=== PATIENT | female | born 1940 | race Caucasian/White ===

== ENCOUNTER 2022-12-04 15:59 | Outpatient (CLI) | payer MEDICARE, SELFPAY ==
[2022-12-04 16:26] LABS: Absolute Neutrophil Count 5.1 X10^3/uL (2.0-7.7); Basophil# 0.07 X10^3/uL; Basophil% 0.8 % (0-1); Eosinophil# 0.14 X10^3/uL; Eosinophils% 1.6 % (0-5); Hematocrit 46.6 % (37-47); Hemoglobin 15.5 g/dL (12.0-15.0); Mean Corp Hgb Conc 33.3 g/dL (32-36); Mean Corpuscular Hgb 31.3 pg (27.0-32.0); Mean Corpuscular Volume 94.1 fL (81-99); Mean Platelet Vol. 10.2 fl (6.2-12.0); Monocyte% 9.3 % (0-10); NRBC Flagged by Analyzer 0 % (0-5); Neutrophil # 5.11 X10^3/uL (2.7-7.7); Neutrophil % 59.2 % (47-70); Platelet Count 225 K/mm3 (150-450); RBC Distribution Width CV 14.5 % (11.6-14.6); RBC Distribution Width SD 50.2 fl (35.1-43.9); Red Blood Count 4.95 M/mm3 (4.2-5.4); White Blood Count 8.6 K/mm3 (4.4-11.0)
[2022-12-04 16:54] LABS: Erythrocyte Sedimentation Rate 14 mm/hr (0-30)
[2022-12-04 17:14] LABS: ALB/GLOB Ratio 0.9 RATIO (0.9-2.4); AST(SGOT) 25 U/L (15-37); Alanine Aminotransfer ALT/SGPT 31 U/L (13-56); Albumin, Serum 3.7 g/dL (3.2-5.0); Alkaline Phosphatase 62 U/L (45-117); Anion Gap 4 (5-15); BUN 15 mg/dL (7-18); BUN/Creat Ratio 16.6 RATIO (10-20); CRP 3.41 mg/L (0.0-3.0); Calcium,Total 9.2 mg/dL (8.5-10.1); Chloride 106 mmol/L (98-107); EST Glomerular Filtration Rate 64 mL/min (>60); Est Glom Filt Rate - Afr Amer 77 mL/min (>60); Globulin 4.3 g/dL (2.2-4.2); Glucose 95 mg/dL (74-106); LDH 211 U/L (84-246); Potassium 4.1 mmol/L (3.5-5.1); Sodium Level 137 mmol/L (136-145)
[2022-12-09 05:33] LABS: Albumin 3.8 g/dL (2.9-4.4); Alpha-1-Globulins 0.2 g/dL (0.0-0.4); Alpha-2-Globulins 0.9 g/dL (0.4-1.0); Cytoplasmic Ab (C-ANCA) <1:20 titer (Neg:<1:20); Endomysial Antibody IgA Negative (Negative); Gamma Globulin 1.3 g/dL (0.4-1.8); Immunoglobulin A 192 mg/dL (64-422); Immunoglobulin E 79 IU/mL (6-495); Immunoglobulin G 1236 mg/dL (586-1602); Immunoglobulin M 104 mg/dL (26-217); PROEL- TOTAL PROTEIN 7.3 g/dL (6.0-8.5); Perinuclear Ab (P-ANCA) <1:20 titer (Neg:<1:20); t-Transglutaminase IgA <2 U/mL (0-3)
[2022-12-09 16:19] LABS: Alternaria alternata <0.10 kU/L (Class 0); Anti-Centromere B Ab <0.2 AI (0.0-0.9); Anti-Chromatin <0.2 AI (0.0-0.9); Anti-Jo <0.2 AI (0.0-0.9); Anti-Scleroderma-70 AB <0.2 AI (0.0-0.9); Anti-dsDNA Ab 4 IU/mL (0-9); Aspergillus fumigatus <0.10 kU/L (Class 0); Beef <0.10 kU/L (Class 0); Bermuda Grass <0.10 kU/L (Class 0); Bluegrass, Kentucky <0.10 kU/L (Class 0); Cat Hair/Dander, Standard <0.10 kU/L (Class 0); Cedar, Mountain 0.13 kU/L (Class 0/I); Chocolate <0.10 kU/L (Class 0); Cladosporium herbarum <0.10 kU/L (Class 0); Clam 0.13 kU/L (Class 0/I); Cockroach, American <0.10 kU/L (Class 0); Codfish <0.10 kU/L (Class 0); Corn <0.10 kU/L (Class 0); D farinae Mite 0.13 kU/L (Class 0/I); D pteronyssinus 0.14 kU/L (Class 0/I); Dog Epithelia 0.14 kU/L (Class 0/I); Egg, White 0.12 kU/L (Class 0/I); Elm, American White <0.10 kU/L (Class 0); Hazelnut Tree <0.10 kU/L (Class 0); Hickory, White <0.10 kU/L (Class 0); Johnson Grass <0.10 kU/L (Class 0); Maple/Box Elder <0.10 kU/L (Class 0); Milk (Cow) 0.12 kU/L (Class 0/I); Mucor racemosus <0.10 kU/L (Class 0); Mugwort <0.10 kU/L (Class 0); Mulberry, White <0.10 kU/L (Class 0); Oak, White <0.10 kU/L (Class 0); Peanut <0.10 kU/L (Class 0); Penicillium chrysogen <0.10 kU/L (Class 0); Pigweed, Rough <0.10 kU/L (Class 0); Plantain, English <0.10 kU/L (Class 0); Pork <0.10 kU/L (Class 0); RNP Ab 0.4 AI (0.0-0.9); Ragweed, Short/Common <0.10 kU/L (Class 0); SCALLOP 0.21 kU/L (Class 0/I); SESAME SEED 0.14 kU/L (Class 0/I); SJOGREN'S Anti-SS-A test < 0.2 AI (0.0-0.9); SJOGREN'S Anti-SS-B test < 0.2 AI (0.0-0.9); Sheep Sorrel(Dock) <0.10 kU/L (Class 0); Shrimp <0.10 kU/L (Class 0); Smith Ab <0.2 AI (0.0-0.9); Soybean <0.10 kU/L (Class 0); Stemphylium herbarum 0.11 kU/L (Class 0/I); Sweet Gum 0.11 kU/L (Class 0/I); Sycamore, American 0.12 kU/L (Class 0/I); Walnut, (Food) <0.10 kU/L (Class 0)
== END 2022-12-04 23:59 | disposition home or self-care (01) ==
LOC: LAB 16:04
PROVIDERS: Referring Provider Internal Medicine Gastroenterology; Visit Provider Internal Medicine Gastroenterology
DX: T78.40XA Allergy, unspecified, initial encounter (principal)
CPT/HCPCS: 36415; 80053; 82784; 82785; 83516; 83615; 84165; 85025; 85652; 86003; 86005; 86140; 86225; 86235; 86255; 86256; 86334

== ENCOUNTER 2023-01-01 08:35 | Day surgery (SDC) | payer MEDICARE, SELFPAY ==
[2023-01-01] VITALS (9 sets, daily range): BP systolic 105–142; BP diastolic 57–78; PULSE 61–72; RESP 15–17; TEMP 36.2–36.4; O2SAT 96–100; BMI 32.3
--- NOTE | 2023-01-01 | COLBX_PTH ---
PATIENT: VAIBHAV TSANG LOC: EN U#:[id number] AGE/SX: 82/F ROOM: RE01/01/[address]: Dr. Chidi Wu DO : 1940 BED: DIS: 01/01/2023 SPEC #: [id number] RECD: 01/01/23 14:09 STATUS: MACK REChastity #: [id number] SHAYAN: 01/01/23 00:[address]: Chidi Wu DEPT: SURGICAL PATHOLOGY RECD BY: Gilberto Mcmahan ENTERED: 01/02/23 07:58 SP TYPE: COLON BX OTHR DR: Юлия Doss, CERTIFIED OPHTHALMIC SURGICAL ASSISTANT-C Tissues: A - COLON BIOPSY B - Cecum, NOS C - COLON BIOPSY D - Sigmoid colon biopsy Procedures: Surgery Specimen Level IV HEADER OPERATION: Colonoscopy with biopsies, polypectomy PRE-OP DIAGNOSIS: Constipation TISSUE SUBMITTED: A - Splenic flexure biopsy, B - Cecum mass biopsy, C - Hepatic flexure polyp biopsy/polyp, D - Sigmoid polyp biopsy MICROSCOPIC DIAGNOSIS A. Colon at splenic flexure, biopsy: Tubular adenoma. B. Cecal mass, biopsy: Invasive adenocarcinoma. See comment. C. Colonic polyp at hepatic flexure, biopsy: Fragments of tubular adenoma. D. Sigmoid colon polyp, biopsy: Tubular adenoma. AM:no 01/05/2023 COMMENT B. Immunohistochemistry ([id number]) supports the above diagnosis. MICROSCOPIC DESCRIPTION Slides are reviewed. GROSS DESCRIPTION A - Received in fixative is one container labeled with the patient's name and designated splenic flexure polyp. The specimen consists of one irregular fragment of light hdz soft tissue that measures 0.3 x 0.2 x 0.1 cm. The specimen is totally submitted in one cassette. B - Received in fixative is one container labeled with the patient's name and designated cecum mass biopsy. The specimen consists of multiple irregular fragments of light hdz soft tissue that in aggregate measure 2.0 x 1.0 x 0.1 cm. The specimen is totally submitted in one cassette. C - Received in fixative is one container labeled with the patient's name and designated hepatic flexure polyp. The specimen consists of multiple irregular fragments of light hdz soft tissue that in aggregate measure 0.5 x 0.5 x 0.1 cm. The specimen is totally submitted in one cassette. D - Received in fixative is one container labeled with the patient's name and designated sigmoid polyp. The specimen consists of one irregular fragment of light hdz soft tissue that measures 0.5 x 0.3 x 0.1 cm. The specimen is totally submitted in one cassette. / AM:no 01/02/2023 TC:0 CPT: 49598 x4
--- NOTE | 2023-01-01 | IMM_PTH ---
PATIENT: VAIBHAV TSANG LOC: EN U#:[id number] AGE/SX: 82/F ROOM: RE01/01/[address]: Dr. Chidi Wu DO : 1940 BED: DIS: 01/01/2023 SPEC #: [id number] RECD: 01/05/23 12:31 STATUS: MACK REQ #: [id number] SHAYAN: 01/01/23 00:[address]: Chidi Wu DEPT: IMMUNOHISTOCHEMISTRY RECD BY: Dyan Smalls ENTERED: 01/05/23 12:32 SP TYPE: IMMUNO OTHR DR: Юлия Doss, TECHNICAL DOCUMENTATION SPECIALIST-C Tissues: B - Cecum, NOS Procedures: MSH2 (add) MLH-1 (add) MSH6 (add) Anti-PMS2 (add) HER2 SHOSHANA (add) P53 (add) CDX2 (add) MOC-31 (add) KI-67 (initial) PHYSICIAN & INSTITUTION [address] [address] SPECIMEN INFORMATION: Tissue Source: B - Cecum mass Clinical Info: Dwain Specimen Number: [id number] CPT code: 69166, 95757 x8 METHODOLOGY: Deparaffinized sections of prefer/formalin-fixed tissue or PAP/DQ stained slides are incubated with monoclonal/polyclonal antibodies/oligonucleotide probes. Localization is made via biotin free immunoperoxidase method. Appropriate controls are performed and reacted as expected. Results on target cell population are indicated in the following table: RESULTS: ANTIBODY / CLONE RESULT Block B Her-2neu (CB11) negative MOC-31 (4561) positive MLH-1 (M1) positive MSH2 (25D12) positive MSH6 (44) positive PMS2 (LOO1451) positive Ki-67 (30-9) positive, >95% P53 (DO-7) positive, missense mutation type CDX2 ([id number]) positive These tests were developed and their performance characteristics determined by [facility]. They may not have been cleared or approved by the U.S. Food and Drug Administration. The FDA has determined that such clearance or approval is not necessary. The above immunohistochemical/dualISH markers are ordered and reviewed by the Pathologist. INTERPRETATION: B. Cecum mass, biopsy: Invasive adenocarcinoma. Result of Microsatellite Instability Study: Negative (no loss of mismatch protein; no microsatellite instability detected). AM:no 01/06/2023
--- NOTE | 2023-01-01 09:52 | HP.PCM_ITS ---
History and Physical Date of Admission: 01/01/23 82 F who presents to the office today for initial consult. Referred by PCP for chronic constipation. Has had constipation life long. Can have 1-2 small BM a day with use of natural laxatives. Has bloating and abdominal discomfort. Reports being sensitive to many foods with fruit being the worst. Will see blood in stool if she eats fruit. Is hard for her to determine food triggers. Has HB from time to time. Has never had a colonoscopy. No other complaints or pertinent PMH. ROS Const Constitutional: No anorexia, fatigue, fever(s), weight change or sleep problems Eyes Eyes: No change in vision ENT ENT: No abnormal hearing, difficulty swallowing, mouth lesions, tongue swelling or throat swelling Resp Respiratory: No cough or shortness of breath Cardio Cardiology: No chest pain at rest, chest pain with exertion, shortness of breath or dyspnea on exertion Gastro GI: No difficulty swallowing Genitourinary-Female: No difficulty urinating or burning urination Musc Musculoskeletal: No joint pain, joint swelling, muscle weakness or decreased muscle mass Skin Skin: No hair loss in leg, yellowing of the eye, itchy eyes, rash, skin ulcer or skin swelling Neuro Neurology: No abnormal hearing, abnormal movements, confusion, unsteady gait/balance or memory loss Psych Psychiatric: No anxiety, No confusion and No memory loss Endo Endocrine: No fatigue or weight change Aller/Imm Allergy/Immunologic: No itchy eyes, throat swelling or tongue swelling Bra[place]/Lymp Hematologic/Lymphatic: No easy bleeding, easy bruising or enlarged lymph nodes Exam Const General: cooperative and comfortable Nutritional Appearance: average body habitus and well nourished [facility] Head: normal to inspection Ears: hearing grossly normal bilaterally Nose: external nose normal Face and sinus: normal facial exam Mouth: oral mucosae normal Throat: posterior oropharynx normal Eyes General: appearance normal, both eyes and all related structures Neck Neck: normal visual inspection Chest Chest palpation & inspection: normal inspection of the chest and normal palpation of entire chest wall Resp Effort & Inspection: normal respiratory effort Auscultation: Bilateral: Clear to Auscultation Cardio Palpation: normal PMI Rate: regular rate Rhythm: regular rhythm GI Inspection: normal to inspection Auscultation: normal bowel sounds Percussion: normal to percussion Palpation: no hepatosplenomegaly Skin General: no rashes or lesions noted Neuro General: patient alert Extrem General: normal to inspection Psych Affect: normal affect Assessment and Plan Assessment and Plan (1) Allergic: Status: Acute Qualifiers: Encounter type: initial encounter Qualified Code(s): T78.40XA - Allergy, unspecified, initial encounter (2) Constipation: Status: Acute Qualifiers: Constipation type: slow transit constipation Qualified Code(s): K59.01 - Slow transit constipation Plan: 82-year-old with chronic idiopathic constipation. Significant for dysfunction, slow transit constipation. She takes laxatives and has been using laxatives in order to go to the bathroom for at least 30 years. She also has multiple drug allergies so she does not want to take anything else without knowing the side effect profile. She will undergo colonoscopy because she has never had a colonoscopy to evaluate her lower GI tract anatomy. We will also get food allergy and allergy testing. She was explained alternatives, risk, benefits including understanding bleeding, infection, sepsis, perforation, need emergent surgery. She will have an ASA 2. Orders: Orders Allergen, Food Profile Today T78.40XA - Allergy, unspecified, initial encounter Allergen, Rast Food Profile Today T78.40XA - Allergy, unspecified, initial encounter Allergens, Zone 8 Today T78.40XA - Allergy, unspecified, initial encounter ANCA Today T78.40XA - Allergy, unspecified, initial encounter Celiac Disease Profile Today T78.40XA - Allergy, unspecified, initial encounter Immunoglobulins G/A/M/E Today T78.40XA - Allergy, unspecified, initial encounter CRP Today T78.40XA - Allergy, unspecified, initial encounter Erythrocyte Sed Rate Today T78.40XA - Allergy, unspecified, initial encounter CBC W/Diff, Automated Today T78.40XA - Allergy, unspecified, initial encounter Comprehensive Metabolic Profil Today T78.40XA - Allergy, unspecified, initial encounter ERROL Comprehensive Panel Today T78.40XA - Allergy, unspecified, initial encounter SANDIP + Protein Elect, Serum Today T78.40XA - Allergy, unspecified, initial encounter LDH Today T78.40XA - Allergy, unspecified, initial encounter I have examined the patient and the H&P has been reviewed. There are no clinical changes since date of exam.
--- NOTE | 2023-01-01 11:33 | OP.CCLET_ITS ---
01/01/2023 No Primary Care Physician Re : Colonoscopy procedure for Dawna Melgar Dear Care Physician This procedure was performed on December. My impressions and recommendations are as follows: Impressions : - One 5 mm polyp in the sigmoid colon, removed with a hot snare. Resected and retrieved. Tattooed. - Moderately active (Rainey Score 2) ulcerative colitis. Biopsied. - Mild inflammation was found in the ileum secondary to ileitis. Biopsied. Recommendations : - Discharge patient to home. - Resume previous diet. - Continue present medications. - Await pathology results. - Repeat colonoscopy for surveillance. -CT scan of the chest, abdomen and pelvis - CEA My findings are described in the full procedure note, which is enclosed. If I can be of further assistance, please feel free to contact me at . Sincerely, Chidi Wu, 01/01/2023 11:33:25 AM This report has been signed electronically.
--- NOTE | 2023-01-01 11:33 | OP.COLON_ITS ---
Patient Name: Dawna Melgar Procedure Date: 01/01/2023 10:41 AM Date of : 1940 Age: 82 Procedure: Colonoscopy Indications: Left-sided chronic ulcerative colitis, Pseudopolyposis of the colon Providers: Chidi Wu DO Referring MD: Chidi Wu DO Medicines: Monitored Anesthesia Care Patient Profile: This is an 82 year old female. Refer to note in patient chart for documentation of history and physical. Last Colonoscopy: date unknown. Unable to locate last colonoscopy report. Complications: No immediate complications. Procedure: Pre-Anesthesia Assessment: - Prior to the procedure, a History and Physical was performed, and patient medications and allergies were reviewed. The patient is competent. The risks and benefits of the procedure and the sedation options and risks were discussed with the patient. All questions were answered and informed consent was obtained. Patient identification and proposed procedure were verified by the physician in the pre-procedure area. Mental Status Examination: alert and oriented. Respiratory Examination: clear to auscultation. CV Examination: normal. Prophylactic Antibiotics: The patient does not require prophylactic antibiotics. Prior Anticoagulants: The patient has taken no anticoagulant or antiplatelet agents. ASA Grade Assessment: II - A patient with mild systemic disease. After reviewing the risks and benefits, the patient was deemed in satisfactory condition to undergo the procedure. The anesthesia plan was to use monitored anesthesia care (MAC). Immediately prior to administration of medications, the patient was re-assessed for adequacy to receive sedatives. The heart rate, respiratory rate, oxygen saturations, blood pressure, adequacy of pulmonary ventilation, and response to care were monitored throughout the procedure. The physical status of the patient was re-assessed after the procedure. After I obtained informed consent, the scope was passed under direct vision. Throughout the procedure, the patient's blood pressure, pulse, and oxygen saturations were monitored continuously. The Colonoscope was introduced through the anus and advanced to the terminal ileum. The colonoscopy was performed without difficulty. The patient tolerated the procedure well. The quality of the bowel preparation was good. The terminal ileum, ileocecal valve, appendiceal orifice, and rectum were photographed. Scope In: 11:02:15 AM Scope Withdrawal Time 0 hours 13 minutes 8 seconds Scope Out: 11:21:07 AM Total Procedure Duration Time 0 hours 18 minutes 52 seconds Findings: The perianal and digital rectal examinations were normal. Three sessile polyps were found in the sigmoid colon, transverse colon and cecum. The polyps were 1 to 2 mm in size. These polyps were removed with a hot snare. Resection and retrieval were complete. Verification of patient identification for the specimen was done. Estimated blood loss was minimal. A diffuse area of severe melanosis was found in the entire colon. Biopsies were taken with a cold forceps for histology. Verification of patient identification for the specimen was done. Estimated blood loss was minimal. A few small-mouthed diverticula were found in the recto-sigmoid colon and sigmoid colon. An ulcerated non-obstructing large mass was found in the cecum. The mass was non-circumferential. The mass measured three cm in length. In addition, its diameter measured five mm. No bleeding was present. This was biopsied with a cold forceps for histology. Area was tattooed with an injection of 2 mL of Shania ink. Impression: - One 5 mm polyp in the sigmoid colon, removed with a hot snare. Resected and retrieved. Tattooed. - Moderately active (Rainey Score 2) ulcerative colitis. Biopsied. - Mild inflammation was found in the ileum secondary to ileitis. Biopsied. Recommendation: - Discharge patient to home. - Resume previous diet. - Continue present medications. - Await pathology results. - Repeat colonoscopy for surveillance. -CT scan of the chest, abdomen and pelvis - CEA Procedure Code(s): --- Professional --- 06758, Colonoscopy, flexible; with removal of tumor(s), polyp(s), or other lesion(s) by snare technique 60016, 59, Colonoscopy, flexible; with biopsy, single or multiple 79428, Colonoscopy, flexible; with directed submucosal injection(s), any substance CPT copyright 2021 [employer]. All rights reserved. The codes documented in this report are preliminary and upon ironer hand review may be revised to meet current compliance requirements. Chidi Wu DO 01/01/2023 11:33:25 AM This report has been signed electronically. Number of Addenda: 0 Note Initiated On: 01/01/2023 10:41 AM
--- NOTE | 2023-01-01 13:33 | SUR.PHASEII ---
AT APPROXIMATLY 1300, DR WISEMAN SPOKE WITH PATIENT AND FAMILY FOR APPROX 15-20 MINUTES REGARDING COLOSCOPY FINDINGS. MADDIE BARRON, MICHAEL AGUIAR, ALSO SPOKE WITH PATIENT AND FAMILY
== END 2023-01-01 13:15 | disposition home or self-care (01) ==
LOC: EN 08:39 → AC 08:40
PROVIDERS: PCP Nurse Practitioner Family; Referring Provider Nurse Practitioner Family; Visit Provider Internal Medicine Gastroenterology
PROC: 0DJD8ZZ Inspection of Lower Intestinal Tract, Via Natural or Artificial Opening Endoscopic (ICD-10-PCS; CPT 45378; principal; 2023-01-01 09:55)
DX: K51.90 Ulcerative colitis, unspecified, without complications (principal); C18.0 Malignant neoplasm of cecum; K59.01 Slow transit constipation; T78.40XA Allergy, unspecified, initial encounter
CPT/HCPCS: 45385; 45381; 45380; 81002; 88305; 88341; 88342; J7120; A4648; J2405

== ENCOUNTER → 2023-01-28 | Outpatient (CLI) | payer MEDICARE, SELFPAY ==
--- NOTE | 2023-01-28 13:04 | CT_ITS ---
STUDY: CT CHEST, ABDOMEN T PELVIS WITH CONTRAST REASON FOR EXAM: Female, 82 years old. History of colon cancer. RADIATION DOSAGE (If Supplied By Facility): CTDIvol = ( 20.96 ) mGy, DLP = ( 1053.83 ) mGycm TECHNIQUE: Transaxial imaging was performed following intravenous administration of Oral and amp; IV Gastrografin and amp; 100mL Isovue-300. Multiplanar coronal and sagittal images were reformatted. Individualized dose optimization techniques were used for this CT. COMPARISON: No relevant priors. FINDINGS: CHEST Small benign appearing bilateral axillary lymph nodes. Minimal linear scarring at the lung bases. There is no demonstrated pleural abnormality. There are calcifications of the coronary arteries. Normal mediastinum. Normal hilar regions. Normal unenhanced pulmonary arteries. Normal aorta arch and descending thoracic aorta. There are multi-level degenerative changes of the thoracic spine. ABDOMEN Normal liver. Possible tiny gallstones along the dependent portion of the gallbladder lumen. There is a benign calcified granuloma of the spleen. Normal pancreas. Normal bilateral adrenal glands. Normal right kidney. Normal left kidney. Normal visualized stomach. Normal small intestine. Soft tissue mass is seen in the cecum in the region of the ileocecal valve. This has an apple core appearance and most likely represents a neoplastic process seen on colonoscopy. There are surgical clips in the region of the appendix consistent with a prior appendectomy. There is diffuse atherosclerotic calcification of the abdominal aorta, without a demonstrated aneurysm. Normal inferior vena cava. Normal retroperitoneum. There is a small umbilical hernia containing fat. Normal osseous structures. PELVIS Normal urinary bladder. Status post hysterectomy. There is evidence of a cystocele. There is no pelvic fluid. There is no pelvic lymphadenopathy or mass lesion. Normal visualized pelvic arteries. CT/CT Chest, Abd, Pel w/Contrast IMPRESSION: Mass lesion in the region of the ileocecal valve as described. Findings suggest tiny gallstones along the dependent portion of the gallbladder lumen. Electronically Signed: Rashel Younger MD at 15:36 EDT ,
[2023-01-28 15:20] LABS: CREATININE FINGERSTICK < 0.9 mg/dL (0.55-1.02); EGFR FINGERSTICK > 60.0000 mL/min (>60)
== END | disposition home or self-care (01) ==
LOC: CT 13:02
PROVIDERS: PCP Nurse Practitioner Family; Referring Provider Internal Medicine Gastroenterology; Visit Provider Internal Medicine Gastroenterology
DX: C18.9 Malignant neoplasm of colon, unspecified (principal)
CPT/HCPCS: 71260; 74177; Q9967

== ENCOUNTER 2023-02-24 05:12 | Inpatient (IN) | payer MEDICARE, SELFPAY ==
--- NOTE | 2023-02-18 07:44 | EKG12_ITS ---
Test Reason : PRE-OP Blood Pressure : / mmHG Vent. Rate : 067 BPM Atrial Rate : 067 BPM P-R Int : 170 ms QRS Dur : 092 ms QT Int : 426 ms P-R-T Axes : 072 -56 044 degrees QTc Int : 450 ms Sinus rhythm with Premature supraventricular complexes Left axis deviation Abnormal ECG Confirmed by RASHAWN MCPHERSON, SADA ([id number]), manager editorial ISIDRO FLETCHER ([id number]) on 02/20/2023 2:40:24 PM Referred By: GISSEL Confirmed By:SADA MOROCHO MD
[2023-02-18 09:53] LABS: Magnesium 2.4 mg/dL (1.6-2.6)
[2023-02-19 04:07] LABS: Carcinoembryonic Antigen 2.9 ng/mL (0.0-4.7)
[2023-02-24] VITALS (12 sets, daily range): BP systolic 91–167; BP diastolic 59–87; PULSE 71–81; RESP 14–18; TEMP 36.2–37; O2SAT 96–100; BMI 32.2; BMI 33.0
--- NOTE | 2023-02-24 | IMM_PTH ---
PATIENT: VAIBHAV TSANG LOC: MS3 U#:[id number] AGE/SX: 82/F ROOM: [facility] [place] RE02/24/[address]: Dr. Tima Champion MD : 1940 BED: 1 DIS: 03/07/2023 SPEC #: [id number] RECD: 02/26/23 14:24 STATUS: MACK REChastity #: [id number] SHAYAN: 02/24/23 00:[address]: Tima Champion DEPT: IMMUNOHISTOCHEMISTRY RECD BY: Dyan Smalls ENTERED: 02/26/23 14:26 SP TYPE: IMMUNO OTHR DR: Юлия Doss, YARDAGE ESTIMATOR-C Tissues: Right colon Procedures: MSH2 (add) MLH-1 (add) MSH6 (add) Anti-PMS2 (add) HER2 SHOSHANA (add) P53 (add) MOC-31 (add) KI-67 (initial) PHYSICIAN & INSTITUTION [address] [address] SPECIMEN INFORMATION: Tissue Source: Right colon with terminal ileum Clinical Info: Malignant neoplasm of ascending colon Specimen Number: [id number] #5 CPT code: 16658, 88469 x7 METHODOLOGY: Deparaffinized sections of prefer/formalin-fixed tissue or PAP/DQ stained slides are incubated with monoclonal/polyclonal antibodies/oligonucleotide probes. Localization is made via biotin free immunoperoxidase method. Appropriate controls are performed and reacted as expected. Results on target cell population are indicated in the following table: RESULTS: ANTIBODY / CLONE RESULT Block 5 Her-2neu (CB11) negative MOC-31 (4561) positive MLH-1 (M1) positive MSH2 (25D12) positive MSH6 (44) positive PMS2 (VRC4555) positive Ki-67 (30-9) positive P53 (DO-7) positive, missense pattern These tests were developed and their performance characteristics determined by [facility]. They may not have been cleared or approved by the U.S. Food and Drug Administration. The FDA has determined that such clearance or approval is not necessary. The above immunohistochemical/dualISH markers are ordered and reviewed by the Pathologist. INTERPRETATION: Right colon, hemicolectomy: Invasive adenocarcinoma. Result of Microsatellite Instability Study: Negative (no loss of mismatch protein; no microsatellite instability detected). AM:no 02/27/2023
[2023-02-24] MEDS: Gabapentin 600 MG Tablet PO (06:17)
[2023-02-24] MEDS: Acetaminophen 500 MG Tablet 1000 MG PO ×3 (06:17→18:10)
[2023-02-24] MEDS: Lactated Ringers 1,000 ML 40 ML IV ×3 (06:24→13:56)
[2023-02-24] MEDS: Magnesium 1 GM over 15 mins IV (06:25)
[2023-02-24] MEDS: Insulin Lispro 100 UNIT/ML INSULN.PEN SC (06:48)
[2023-02-24 07:10] LABS: Bedside Glucose 185 mg/dL (74-106)
--- NOTE | 2023-02-24 07:23 | PCM.HP.BLA ---
History and Physical Date of Admission: 02/24/23 Date of Service: 02/06/23 MR#: [id number] Acct: [id number] Name: VAIBHAV TSANG Rep #: [id number] : 1940 Provider: Dr. Tima Champion MD Age/Sex: 82/F Location: [facility] Status: Signed Intake Vital Signs 01/01/2309:19 02/07/2312:56 Height 4 ft 9 in 4 ft 8 in Weight: 150 lb 2 oz BMI 33.6 BP 128/78 H Blood Pressure Location Rt brachial Position Sitting Respiration 16 Pulse 72 Pulse Source NIBP Temp 97.4 F L Temp Source Temporal Pulse Oximetry (%) 98 Oxygen Delivery Method room air Intake Visit Reasons: Rectal Mass Chief Complaint: cecal cancer Braid Maker Required: No Is patient in pain?: No Allergies Sulfa (Sulfonamide Antibiotics) Allergy (Intermediate, Verified 02/06/23 12:57) Rash Medications NK 02/06/23 [History Confirmed 02/06/23] Is last menstrual period known: No Post menopausal: Yes Patient : No PFSH Medical History Anxiety Arthritis Back pain Bladder disease Constipation Dietary restriction Difficulty swallowing Gastric reflux History of edema History of irregular heartbeat History of pain when walking Leg cramps Non-smoker Post-menopausal Shortness of breath on exertion Wears glasses Wears hearing aid Surgical History H/O total hysterectomy History of tonsillectomy Hx of left cataract extraction Hx of right cataract extraction Social History (Updated 12/04/22 @ 14:23 by Nathalia Rodriguez) Smoking Status: Never smoker alcohol intake: never HPI HPI HPI: Patient is a 82-year-old female who presents for colon cancer that was first diagnosed via colonoscopy secondary to complaints of constipation and observation of bright red blood per rectum. She presents today with her cousin who she introduces as her primary confidant. They are referred for surgical consultation from Dr. Wu of gastroenterology who performed the colonoscopy. Patient admits that she had no prior colonoscopy to this investigation performed on 01/01/2023. In fact, she reports that she avoided medical personnel for 46 years prior to the present work-up. On her study last month she was identified as having a cecal mass that was pathologically confirmed as invasive adenocarcinoma. Mrs. Tsang recalls a history of constipation for many years. She states that she has simply coped by taking laxatives. They have approximately 4-5 small bowel movements per day. They have not noticed recent bleeding or dark stools since the colonoscopy. Patient has no family history of colon cancer, inflammatory bowel disease, or diverticulitis, but she notes that all of her siblings deal with constipation. The patient's weight is stable. The patient is not prescribed anticoagulants/blood thinners. Relevant prior abdominal surgical history includes: An open hysterectomy with appendectomy performed remotely at the age of 36. Staging imaging has been done. CT of the abdomen pelvis was performed showing a apple core lesion within the cecum but noted normal appearance of the liver. Baseline CEA level has not been obtained. ROS General General: Yes colon cancer; No weight change, appetite, fatigue, breast cancer or weakness HEENT HEENT: No difficulty swallowing, eye injury, eye surgery, swollen glands or hoarseness Endo Endocrine: No thyroid disease, diabetes mellitus, thyroid cancer, Hair loss, heat intolerance or cold intolerance Musc Musculoskeletal: Yes back problems; No arthritis, rheumatoid arthritis, gout or joint pain Cardio Cardiovascular: No murmur, pacemaker, heart disease, atrial fibrillation, high blood pressure, heart attack, heart stent, palpitations, shortness of breat with exertion or chest pain Psych Psychiatric: No depression, anxiety or hearing voices Resp Respiratory: No shortness of breath, No sleep apnea, No cough, No COPD, No asthma, No emphysema and No wheezing Gastro Gastrointestinal: Yes abdominal pain, No nausea or vomiting, No diarrhea, Yes constipation, No blood in stool, Yes acid reflux, No hemorrhoids, No ulcers, No gallbladder problem and No black,tarry stools [place] Hematologic: No blood thinners, No blood disorders, No bleeding, No anemia and No blood clots Neuro Neurologic: No weakness Exam Const General: cooperative, comfortable and no acute distress Orientation: alert, awake and oriented x3 Other: Sharp wit, very short in stature Resp Effort & Inspection: normal respiratory effort GI Other: Well-healed infraumbilical laparotomy incision. No evidence of hernia. Nondistended, soft, nontender to palpation x4 quadrants Assessment and Plan Assessment and Plan (1) Colon cancer: Status: Acute Qualifiers: Colon location: ascending Qualified Code(s): C18.2 - Malignant neoplasm of ascending colon Comment: This is an 82-year-old female who was recently found to have a partially obstructing cecal mass during colonoscopy for complaints of constipation and hematochezia on 01/01/[address] Wu of gastroenterology. Patient has no history of prior endoscopy. She presents today believing that her mass was located in her left colon but I have taken significant time to share with her her CT imaging as well as diagrammed the location of her tumor and the surgical treatment recommended. I have briefly discussed with her the concept of TNM staging as well. Mrs. Tsang does articulate that she is against the idea of chemotherapy at this time and wishes to do things the natural way. At this I have encouraged her to remain open minded as she is able. Given that she is diagnosed with a partially obstructing cancer I would like to proceed rather expeditiously for surgical management of her condition with a laparoscopic right hemicolectomy and primary anastomosis. I will plan to enroll her in enhanced recovery after surgery colectomy pathway. This concept was also briefly discussed with the patient and her cousin. Regarding her history of anesthetic complications, Mrs. Tsang admits that this amounted to a panic attack but no significant cardiac abnormalities. Plan: ? Obtain Carcinoembryonic antigen as previously discussed ? Tentatively plan for laparoscopic right hemicolectomy with mechanical bowel prep and EUS enrollment on 02/24/2023 I have examined the patient the following changes are noted: Patient now has rosacea. She states that she also became somewhat sick with her prep and had vomiting and diarrhea both. Otherwise she does feel well. She denies any other changes. We have reviewed operative and postoperative expectations?including the need for an observational stay postoperatively all the questions have been answered. Proceed to the operating room for planned laparoscopic right hemicolectomy with primary anastomosis.
--- NOTE | 2023-02-24 07:30 | COL._PTH ---
PATIENT: VAIBHAV TSANG LOC: [facility]3 U#:[id number] AGE/SX: 82/F ROOM: [id number] RE02/24/[address]: Dr. Tima Champion MD : 1940 BED: 1 DIS: 03/07/2023 SPEC #: [id number] RECD: 02/24/23 12:27 STATUS: MACK BETHANY #: [id number] SHAYAN: 02/24/23 07:[address]: Tima Champion DEPT: SURGICAL PATHOLOGY RECD BY: Suzette Hale ENTERED: 02/24/23 12:54 SP TYPE: COLON OTHR DR: Юлия Doss, [employer]-C Tissues: Colon, NOS Procedures: Surgery Specimen Level HEADER OPERATION: ERAS, laparoscopic hemicolectomy PRE-OP DIAGNOSIS: Malignant neoplasm of ascending colon TISSUE SUBMITTED: Right colon with terminal ileum MICROSCOPIC DIAGNOSIS Right colon, hemicolectomy: Invasive moderately differentiated adenocarcinoma. See cancer synoptic report below. AM:no 02/26/2023 COMMENT COLON CANCER SUMMARY Procedure: Right hemicolectomy Tumor site: Cecum Tumor size: 3.5 x 3.0 x 0.8 cm Macroscopic tumor perforation: Not identified Histologic type: Adenocarcinoma Histologic grade: G2 (moderately differentiated) Tumor extension: Tumor invades through the muscularis propria. Margins: All margins are uninvolved by invasive carcinoma, high grade dysplasia/carcinoma in situ or adenoma. Margins examined: Proximal, distal and serosal Treatment effect: Unknown Lymphvascular invasion: Not identified Perineural invasion: Focally present Type of polyp in which invasive carcinoma arose: None identified Tumor deposits: Not identified Regional lymph nodes: 25 out of 25 lymph nodes negative for metastatic carcinoma. Ancillary studies: See microsatellite instability study by IHC ([id number]) for complete details. Negative (no loss of mismatch protein; no microsatellite instability detected). Additional pathologic findings: Mild chronic inflammation. PATHOLOGIC STAGE: pT3 N0 Mx The above summary is in compliance with [employer] [place] Pathology (CAP) Cancer Protocols Checklist and [place] Joint Committee on Cancer (AJCC), Staging Manual, 8th Ed. MICROSCOPIC DESCRIPTION Slides are reviewed. GROSS DESCRIPTION Received in fixative is one container labeled with the patient's name and designated right colon and terminal ileum. The specimen consists of 18.0 cm of large bowel with attached 5.5 cm of small bowel. The appendix is not present. A mass is located in the cecum measuring 3.5 x 3.0 x 0.8 cm and occupies 50% of the circumference of the bowel. The mass is located 8.5 cm from its closest (proximal) margin of resection and 2.2 cm distal to the ileocecal valve. The serosa in the area of the mass is inked in black ink. Serial sections of the mass does not reveal gross extension of mass to serosal surface. No other mass lesions are identified. The attached fibrofatty tissue contains a number of nodules resembling lymph nodes. Construction Tech sections are submitted as follows: 1 - mucosal margins, 2 - ileocecal valve, 3 - uninvolved small and large bowel, 4-7 - tumor, 8-13 - multiple lymph nodes in each cassette, 14 - one lymph node, bisected. / AM:no 02/25/2023 TC:0 CPT: 11745
[2023-02-24] MEDS: Cefotetan 2 GM in 0.9% NS 100 ML IV (07:45)
[2023-02-24] MEDS: BUPIVACAINE LIPOSOME/PF 20 ML VIAL OPERA.SITE (08:18)
[2023-02-24] MEDS: Bupivacaine 0.25% 30 ML Vial (08:18)
[2023-02-24] MEDS: 0.9% Normal Saline (Pres. free 10 ML Vial (08:18)
[2023-02-24 10:10] LABS: Bedside Glucose 115 mg/dL (74-106)
--- NOTE | 2023-02-24 11:13 | OP.PCM_ITS ---
Report of Operation Date of Procedure: 02/24/23 Pre-Operative Diagnosis: Colon cancer of the cecum Post-Operative Diagnosis: Same Surgery/Procedure Performed:: Laparoscopic right hemicolectomy with primary ileocolic anastomosis Description of Surgical Findings:: ? Large cecal tattoo with spattering of the peritoneum adjacent to tattoo ? No gross peritoneal studding or liver nodularity (no palpable nodularity) Surgeon: Tima Champion court assistant: Delio Mas Type of Anesthesia: General/Supplemental Anesthesiologist: Solomon Webb Special Medications: Exparel, Marcaine, saline cocktail for tap block Specimen's removed: Right colon and terminal ileum Drains: None Estimated Blood Loss (mL): 50 Description of Procedure: Operation performed for curative intent: Yes Tumor location: Cecum Extent of colon and vascular resection: Right hemicolectomy After appropriate identification in the preoperative holding area the patient was brought to the operating room where she was positioned supine in the operating room table. There she underwent induction of general anesthesia. She was administered preoperative antibiotics. A Mcneil catheter was then placed for accurate ins and outs monitoring. Anesthesia placed a orogastric tube for gastric decompression. A formal timeout was conducted to confirm patient and procedure and the procedure was begun with a Mason entry in the supraumbilical position and placement of a 12 mm balloon trocar. Pneumoperitoneum was established at 15 mmHg and an inspection of the peritoneum was made. There was no evidence of inadvertent injury to the viscera below from our entry. Inspection of the liver did not reveal any mass lesions that could be concerning for metastatic deposits. There were a number of areas with brown spattering about the patient's readily visible right-sided colon tattoo consistent with ink spread from prior endoscopic evaluation. Before proceeding with further port placement I performed a bilateral TAP block using a solution of Exparel, bupivacaine, and saline to instill 80 mL in evenly measured aliquots under laparoscopic direction. However, there were adhesions along patient's midline between the greater omentum and her midline laparotomy scar which precluded completion of the tap block. Therefore I then set about placing 5 mm ports in the left lower quadrant and suprapubic positions under laparoscopic visuali zation and proceeded with takedown of these adhesions using our laparoscopic LigaSure (a third 5 mm port was placed in the midline epigastrium). The tap block was then completed and the patient was repositioned with her left side down. In this position I began to mobilize the colon and a lateral to medial fashion by opening the peritoneal reflection along the right paracolic gutter using the laparoscopic LigaSure device. In doing so we entered the avascular plane between the colon and the retroperitoneum/atop Gerota's fascia inferiorly. I continued this mobilization until we reached the liver. I also performed some limited mobilization of the terminal ileum where there were a few adhesions to the pelvic sidewall. Patient was then positioned in reverse Trendelenburg and the hepatic flexure was mobilized with the use of the laparoscopic LigaSure device between the colon and the overlying omentum. We mobilized this colon medially to the greater curve of the stomach. I sought visualization of the underlying duodenum but patient's heavy omentum somewhat precluded this view. I then checked overall mobility of the right colon and found it easily reached to our supraumbilical port site. On reaching this observation, I made the decision to extracorporealize the right colon via a limited midline incision. Therefore an incision was made between the supraumbilical and epigastric port sites and A medium size Ray wound protector was placed. Our specimen was delivered through this opening with ease. There were several thin attachments between the patient's transverse colon and the underlying duodenum (now visible through this open approach) and these were carefully divided so as not to incur a serosal tear on the duodenum. The distal transection point was identified and the patient's proximal transverse colon and several epiploic appendages were removed from the surface of the colon to facilitate proper exposure. A window was created in the colonic mesentery and a 75 mm ALEXANDRA stapler was used to transect the bowel. The mesocolon was divided with serial applications of the LigaSure device. I attempted to palpate the ileocolic pedicle, however was not able to detect a pulse in the patient's thick mesocolon so I simply proceeded cautiously with further application of the LigaSure until it took me down to the level of the terminal ileum. Here the mesenteric division continued all the way to the bowel wall of the terminal ileum then this bowel was divided with a second firing of our ALEXANDRA stapler. The specimen was passed off the field for pathologic processing. I then aligned the remaining ileum and transverse colon-taking care to remove some intervening pericolonic fat from the tinea. A crotch stitch and back row of interrupted 3-0 silk sutures was placed to align these 2 segments of bowel. Then the corners of each staple line were sharply removed and a [id number], functional end stapled ileocolonic anastomosis was produced with a third firing of our ALEXANDRA stapler. Quick inspection of the mucosal side of our anastomosis did not reveal any bleeding from the staple line. The common channel was reoriented perpendicularly to our original staple lines and was closed with a TX 60 mm stapler. The staple line was hemostatic save for the very end of the staple line where there was some brisk bleeding from a partially transected vessel so this was oversewn with a 3-0 silk suture. The anastomosis was palpated and found to be widely open. Given the proximity to the greater omentum I elected to use a portion of the omentum nearest to our anastomosis to buttress our staple lines and perform interrupted tacking stitches with additional 3-0 silk between the omentum and epiploic fat. Satisfied with our anastomosis the bowel was returned to the peritoneum. I then irrigated the abdomen with warm sterile saline until the suctioned effluent appeared clear. I thus removed the wound protector and began closure of the abdomen. Just prior to this closure all personnel changed gown and gloves and the wound was reprepped with sterile towels. The specimen extraction site was closed with #1 PDS in a bidirectional fashion from the corners and tying in the middle. The subcutaneous layer was irrigated above the fascia and the skin was closed with a interrupted 4-0 Monocryl. The remaining 5 mm port sites were also closed in a subcuticular fashion with 4-0 Monocryl. Dressings were applied and the patient was awoken from general anesthetic without complication. She was taken to PACU for ongoing recovery. Complications None Admit VTE Documentation VTE Mechan Device Prophylaxis: SCD's
[2023-02-24 12:07] LABS: Bedside Glucose 133 mg/dL (74-106)
[2023-02-24] MEDS: Glycerin/Hypromellose/PEG400 15 ml Bottle 1 DRP RIGHT EYE (18:11)
[2023-02-24] MEDS: Ondansetron ODT 4 MG Tablet PO (22:14)
[2023-02-25] VITALS (7 sets, daily range): BP systolic 127–153; BP diastolic 65–81; PULSE 70–80; RESP 16–18; TEMP 36.4–37.1; O2SAT 95–98
[2023-02-25] MEDS: Acetaminophen 500 MG Tablet 1000 MG PO ×4 (00:28→18:58)
[2023-02-25 07:00] LABS: Hematocrit 42.7 % (37-47); Hemoglobin 14.5 g/dL (12.0-15.0); Mean Corpuscular Hgb 31.5 pg (27.0-32.0); Mean Corpuscular Volume 92.6 fL (81-99); Mean Platelet Vol. 10.1 fl (6.2-12.0); Platelet Count 216 K/mm3 (150-450); RBC Distribution Width CV 14.3 % (11.6-14.6); RBC Distribution Width SD 48.6 fl (35.1-43.9); Red Blood Count 4.61 M/mm3 (4.2-5.4); White Blood Count 14.6 K/mm3 (4.4-11.0)
[2023-02-25 07:28] LABS: Anion Gap 5 (5-15); BUN 6 mg/dL (7-18); BUN/Creat Ratio 8.3 RATIO (10-20); Calcium,Total 8.6 mg/dL (8.5-10.1); Chloride 103 mmol/L (98-107); Creatinine, Serum 0.72 mg/dL (0.55-1.02); EST Glomerular Filtration Rate 82 mL/min (>60); Est Glom Filt Rate - Afr Amer 100 mL/min (>60); Estimated Creatinine Clearance 48.15 ml/min; Glucose 137 mg/dL (74-106); Potassium 4.3 mmol/L (3.5-5.1); Sodium Level 134 mmol/L (136-145)
--- NOTE | 2023-02-25 08:23 | PCM.PN.SRG ---
Subjective Subjective Patient seen and examined during AM rounds. She is found resting in bed. She notes that she slept well overnight. She describes just mild abdominal tenderness which she rates at less than a 5 out of 10. She does confirm a bowel movement yesterday but has had minimal gas since that time. She denies any nausea or vomiting in response to her liquid diet started yesterday. She also reports that she has been walking about her room and has spent considerable time in a chair. Objective Data Objective Data Vital Signs: Vital Signs Temp Pulse Resp BP Pulse Ox O2 Del Method O2 Flow Rate 97.6 F L 80 16 127/65 H 98 Room Air 4 02/25/23 05:01 02/25/23 05:01 02/25/23 05:01 02/25/23 05:01 02/25/23 05:01 02/25/23 05:01 02/24/23 12:30 Oxygen Flow Rate (L/min) 4 Oxygen Delivery Method Room Air Weight: 152 lb 6.4 oz Body Mass Index (BMI) 33.0 Intake & Output: Intake and Output for Last 24 Hours 02/23/23 02/24/23 02/25/23 23:59 23:59 23:59 Intake Total 1498.67 / 1498.67 700 / 700 Output Total 1100 / 1100 2100 / 2100 Balance 398.67 / 398.67 -1400 / -1400 Lab / Micro Data 02/25/23 06:45 02/25/23 06:45 Labs: Laboratory Results - last 24 hr 02/24/23 09:51: POC Glucose 115 H 02/24/23 11:49: POC Glucose 133 H 02/25/23 06:45: WBC 14.6 H, RBC 4.61, Hgb 14.5, Hct 42.7, MCV 92.6, MCH 31.5, MCHC 34.0, RDW Std Deviation 48.6 H, RDW Coeff of Jessica 14.3, Plt Count 216, MPV 10.1, Sodium 134 L, Potassium 4.3, Chloride 103, Carbon Dioxide 26.0, Anion Gap 5, BUN 6 L, Creatinine 0.72, Estim Creat Clear Calc 48.15, Est GFR (MDRD) Af Amer 100, Est GFR (MDRD) Non-Af 82, BUN/Creatinine Ratio 8.3 L, Glucose 137 H, Calcium 8.6 Physical Exam Const oriented x3 and no apparent distress Resp normal respiratory effort GI GI Narrative: Mild abdominal distention, slight bloody drainage to patient's upper midline incision dressing, appropriately tender to palpation Assessment & Plan Assessment/Plan (1) S/P right colectomy: PLAN: Patient is postoperative day 1 from laparoscopic right hemicolectomy with primary ileocolic anastomosis. She is doing well this morning with reports of already had 1 bowel movement overnight. She appears motivated and has been already mobilizing around her room and into a chair. I have encouraged further activity and yet do want a hold off continuing a diet advancement until her abdominal exam exhibits less distention. We will plan to pull her Mcneil catheter and follow for spontaneous voiding. Patient is currently enrolled in the rest protocol. (2) Colon cancer: QUALIFIERS: Colon location: ascending Qualified Code(s): C18.2 - Malignant neoplasm of ascending colon PLAN: Status post resection, however, between this diagnosis and recent surgery patient is hypercoagulable. We will reassess her laboratories tomorrow and if there is no concerns for postoperative bleeding we will plan to initiate enoxaparin. Charges/Coding Visit Charges Inpatient E&M: 34401 Subs Hosp L2
--- NOTE | 2023-02-25 11:02 | CASEMGMT ---
MARCIA NGUYEN Assessment: Face to Face with pt for initial transition planning/care coordination assessment. MARCIA NGUYEN introduced self and role at [facility], pt voices understanding and consents to assessment. Pt is A&O x4 and answers all questions appropriately at this time. Pt sitting up in chair with sister Namrata at bedside. Pt agreeable to assessment with sister present. Care providers, pharmacy, and demographics verified/updated. Admitting Dx: lap perla colectomy PCP:Юлия Doss NP Specialists:YVETTE Champion; Friend, GI Preferred Pharmacy: [facility] Insurance: [facility] Prescription Benefit:no LNOK: Sharon Melgar, dtr; Akua Chenyer, cousin Living Arrangements: Pt lives with dtr in a 3 story home with 3 steps to enter without a rail. Pt reports she is typically I in ADL's and denies concerns at home. 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 DME:cane- pt doesn't use HHC/SNF: Pt denies hx of Pt states no concerns with going home at time of dc. Pt states no further concerns/needs. CM to follow. Advised pt to ask CM if any further question/concerns/needs arise, voices understanding. Pt Goal: Home Plan: Home
--- NOTE | 2023-02-25 11:09 | CASEMGMT ---
Patient has a Healthcare Living Will on file at [facility]. Patient said she has a Healthcare Power of Fitting Room Operator. SW asked patient if she could have a copy brought in for [facility]. Patient wrote this down so she would not forget. Gretel LUX
[2023-02-25] MEDS: Lactated Ringers 1,000 ML 40 ML IV (14:36)
[2023-02-25] MEDS: Ibuprofen 400 MG Tablet PO ×2 (17:29→23:42)
[2023-02-26] MEDS: Acetaminophen 500 MG Tablet 1000 MG PO (01:17)
[2023-02-26] MEDS: Ondansetron ODT 4 MG Tablet PO (03:12)
[2023-02-26 03:23] VITALS: BP 144/91; PULSE 72; RESP 18; TEMP 36.5; O2SAT 94
[2023-02-26 03:25] VITALS: PULSE 72; RESP 16; O2SAT 94
[2023-02-26 06:54] LABS: Absolute Lymphocyte Count 2.63 X10^3/uL (0.83-4.51); Absolute Neutrophil Count 11.3 X10^3/uL (2.0-7.7); Basophil# 0.04 X10^3/uL; Basophil% 0.3 % (0-1); Eosinophil# 0.03 X10^3/uL; Eosinophils% 0.2 % (0-5); Hematocrit 48.6 % (37-47); Lymphocyte # 2.63 X10^3/ul (0.83-4.51); Lymphocyte % 17.3 % (19-41); Mean Corp Hgb Conc 32.9 g/dL (32-36); Mean Corpuscular Hgb 30.7 pg (27.0-32.0); Mean Corpuscular Volume 93.1 fL (81-99); Mean Platelet Vol. 10.2 fl (6.2-12.0); Monocyte# 1.16 X10^3/uL; Monocyte% 7.6 % (0-10); NRBC Flagged by Analyzer 0 % (0-5); Neutrophil # 11.31 X10^3/uL (2.7-7.7); Neutrophil % 74.2 % (47-70); Platelet Count 261 K/mm3 (150-450); RBC Distribution Width CV 14.8 % (11.6-14.6); RBC Distribution Width SD 51.4 fl (35.1-43.9); Red Blood Count 5.22 M/mm3 (4.2-5.4); White Blood Count 15.2 K/mm3 (4.4-11.0)
[2023-02-26 07:15] LABS: Anion Gap 5 (5-15); BUN 6 mg/dL (7-18); BUN/Creat Ratio 6.7 RATIO (10-20); Calcium,Total 9.2 mg/dL (8.5-10.1); Chloride 101 mmol/L (98-107); Creatinine, Serum 0.89 mg/dL (0.55-1.02); EST Glomerular Filtration Rate 64 mL/min (>60); Est Glom Filt Rate - Afr Amer 78 mL/min (>60); Glucose 132 mg/dL (74-106); Potassium 4.5 mmol/L (3.5-5.1); Sodium Level 132 mmol/L (136-145)
[2023-02-26] MEDS: Enoxaparin 30 MG/0.3 ML Syringe SC (08:44)
[2023-02-26 09:00] VITALS: BP 135/80; PULSE 83; RESP 15; TEMP 36.9; O2SAT 94
--- NOTE | 2023-02-26 09:48 | PCM.PN.SRG ---
Subjective Subjective Patient seen and examined during AM rounds. She is found resting in bed. She states she had a little bit of a difficult overnight given that she had a pill become stuck in her throat resulting in a vomiting episode. She states that she does remain a little bit nauseous after this event but she has had flatus and 2 additional bowel movements. She reports improved abdominal tenderness today. Objective Data Objective Data Vital Signs: Vital Signs Temp Pulse Resp BP Pulse Ox O2 Del Method O2 Flow Rate 98.5 F 83 15 135/80 H 94 Room Air 4 02/26/23 09:00 02/26/23 09:00 02/26/23 09:00 02/26/23 09:00 02/26/23 09:00 02/26/23 09:07 02/24/23 12:30 Oxygen Flow Rate (L/min) 4 Oxygen Delivery Method Room Air Weight: 152 lb 6.383 oz Body Mass Index (BMI) 33.0 Intake & Output: Intake and Output for Last 24 Hours 02/24/23 02/25/23 02/26/23 23:59 23:59 23:59 Intake Total 1498.67 / 1498.67 2150 / 2210 60 / 60 Output Total 1100 / 1100 2700 / 2900 600 / 600 Balance 398.67 / 398.67 -550 / -690 -540 / -540 Lab / Micro Data 02/26/23 06:35 02/26/23 06:35 Labs: Laboratory Results - last 24 hr 02/26/23 06:35: WBC 15.2 H, RBC 5.22, Hgb 16.0 H, Hct 48.6 H, MCV 93.1, MCH 30.7, MCHC 32.9, RDW Std Deviation 51.4 H, RDW Coeff of Jessica 14.8 H, Plt Count 261, MPV 10.2, Immature Gran % (Auto) 0.400, Neut % (Auto) 74.2 H, Lymph % (Auto) 17.3 L, [place] % (Auto) 7.6, Eos % (Auto) 0.2, Baso % (Auto) 0.3, Absolute Neuts (auto) 11.3 H, Absolute Lymphs (auto) 2.63, Nucleated RBC % 0, Sodium 132 L, Potassium 4.5, Chloride 101, Carbon Dioxide 26.0, Anion Gap 5, BUN 6 L, Creatinine 0.89, Estim Creat Clear Calc 54.10, Est GFR (MDRD) Af Amer 78, Est GFR (MDRD) Non-Af 64, BUN/Creatinine Ratio 6.7 L, Glucose 132 H, Calcium 9.2 Physical Exam Const oriented x3 and no apparent distress Resp normal respiratory effort GI GI Narrative: Mildly distended, port site incision dressings are taken down and port sites remain well approximated without erythema or drainage. Patient is appropriately tender to palpation Assessment & Plan Assessment/Plan (1) S/P right colectomy: PLAN: Patient is postoperative day 2 from laparoscopic right hemicolectomy with primary ileocolic anastomosis. She reports 1 episode of emesis as she experienced some choking on a pill yesterday but otherwise seems to continue to exhibit signs of bowel function return with flatus and 2 additional bowel movements. Given her vomiting episode she is reluctant to take more of her diet today. I have encouraged her to take it as she feels ready and will boost her IV fluid support slightly given that she shows some signs of hemoconcentration with her labs. Additionally, given the stability of her hemoglobin we will initiate enoxaparin therapy for DVT prophylaxis today. I have encouraged her to continue to mobilize and be up in a chair. I will hold off continuing a diet advancement until her abdominal exam exhibits less distention and she expresses more of an appetite. By way of an addendum patient note from yesterday should have read that she is currently enrolled in enhanced recovery after surgery protocol. (2) Colon cancer: QUALIFIERS: Colon location: ascending Qualified Code(s): C18.2 - Malignant neoplasm of ascending colon Charges/Coding Visit Charges Inpatient E&M: 19126 Subs Hosp L2
[2023-02-26] MEDS: Lactated Ringers 1,000 ML 75 ML IV (14:48)
[2023-02-26 15:00] VITALS: BP 136/80; PULSE 80; RESP 16; TEMP 36.8; O2SAT 95
[2023-02-26] MEDS: Ondansetron 4 MG/2 ML Vial IV (16:42)
[2023-02-26] MEDS: Ibuprofen 400 MG Tablet PO (20:45)
[2023-02-26 20:52] VITALS: BP 146/76; PULSE 82; RESP 16; TEMP 37.2; O2SAT 95
[2023-02-27 03:01] VITALS: BP 150/90; PULSE 88; RESP 16; TEMP 36.8; O2SAT 95
[2023-02-27] MEDS: Lactated Ringers 1,000 ML 75 ML IV (03:54)
--- NOTE | 2023-02-27 07:24 | PCM.PN.SRG ---
Subjective Subjective Patient seen and examined during AM rounds. She is found walking the halls. She notes that she had another bout of emesis overnight. She states this was not due to any choking but continues to complain of a bit of a sore throat from her endotracheal tube at surgery. She denies any significant nausea presently. She has had no further flatus or bowel movements overnight. Objective Data Objective Data Vital Signs: Vital Signs Temp Pulse Resp BP Pulse Ox O2 Del Method O2 Flow Rate 98.2 F 88 16 150/90 H 95 Room Air 4 02/27/23 03:01 02/27/23 03:01 02/27/23 03:01 02/27/23 03:01 02/27/23 03:01 02/27/23 03:01 02/24/23 12:30 Oxygen Flow Rate (L/min) 4 Oxygen Delivery Method Room Air Weight: 152 lb 6.383 oz Body Mass Index (BMI) 33.0 Intake & Output: Intake and Output for Last 24 Hours 02/25/23 02/26/23 02/27/23 23:59 23:59 23:59 Intake Total 2150 / 2210 1556.75 / 1556.75 903.75 / 903.75 Output Total 2700 / 2900 600 / 600 200 / 200 Balance -550 / -690 956.75 / 956.75 703.75 / 703.75 Lab / Micro Data 02/26/23 06:35 02/26/23 06:35 Physical Exam Const oriented x3 and no apparent distress Resp normal respiratory effort GI GI Narrative: Moderately distended, midline operative dressing is taken down and extraction site is well-healing with Steri-Strips intact and there is no yajaira-incisional erythema or drainage. Patient's abdomen does seem to be somewhat softer than yesterday. Assessment & Plan Assessment/Plan (1) S/P right colectomy: PLAN: Patient is postoperative day 4 from laparoscopic right hemicolectomy with primary ileocolic anastomosis. She reports an additional bout of emesis overnight and no further bowel activity. This is suspicious for postoperative ileus. I will make her n.p.o. and advance her IV fluid rate while obtaining a KUB. Her labs are still outstanding for today but we will look to replace any electrolyte deficiencies. (2) Colon cancer: QUALIFIERS: Colon location: ascending Qualified Code(s): C18.2 - Malignant neoplasm of ascending colon Charges/Coding Visit Charges Inpatient E&M: 12503 Subs Hosp L2
[2023-02-27 07:42] LABS: Absolute Lymphocyte Count 1.79 X10^3/uL (0.83-4.51); Absolute Neutrophil Count 10.4 X10^3/uL (2.0-7.7); Basophil# 0.03 X10^3/uL; Basophil% 0.2 % (0-1); Eosinophil# 0.37 X10^3/uL; Eosinophils% 2.7 % (0-5); Hematocrit 44.7 % (37-47); Hemoglobin 14.7 g/dL (12.0-15.0); Lymphocyte # 1.79 X10^3/ul (0.83-4.51); Lymphocyte % 13.1 % (19-41); Mean Corp Hgb Conc 32.9 g/dL (32-36); Mean Corpuscular Hgb 31.1 pg (27.0-32.0); Mean Corpuscular Volume 94.5 fL (81-99); Mean Platelet Vol. 10.3 fl (6.2-12.0); Monocyte# 0.97 X10^3/uL; Monocyte% 7.1 % (0-10); NRBC Flagged by Analyzer 0 % (0-5); Neutrophil # 10.43 X10^3/uL (2.7-7.7); Neutrophil % 76.6 % (47-70); POSITIVE MORPHOLOGY YES; Platelet Count 253 K/mm3 (150-450); RBC Distribution Width CV 14.7 % (11.6-14.6); RBC Distribution Width SD 51.6 fl (35.1-43.9); Red Blood Count 4.73 M/mm3 (4.2-5.4); White Blood Count 13.6 K/mm3 (4.4-11.0)
[2023-02-27 07:47] LABS: Differential Indicated SCAN CRITERIA MET
[2023-02-27 08:02] LABS: Anion Gap 5 (5-15); BUN 9 mg/dL (7-18); BUN/Creat Ratio 12.7 RATIO (10-20); Calcium,Total 8.8 mg/dL (8.5-10.1); Chloride 100 mmol/L (98-107); Creatinine, Serum 0.71 mg/dL (0.55-1.02); EST Glomerular Filtration Rate 84 mL/min (>60); Est Glom Filt Rate - Afr Amer 101 mL/min (>60); Estimated Creatinine Clearance 48.15 ml/min; Glucose 119 mg/dL (74-106); Magnesium 2.2 mg/dL (1.6-2.6); Phosphorus 2.8 mg/dL (2.5-4.9); Potassium 4.3 mmol/L (3.5-5.1); Sodium Level 136 mmol/L (136-145)
--- NOTE | 2023-02-27 08:20 | RAD_ITS ---
STUDY: X-RAY - ABDOMEN/PELVIS REASON FOR EXAM: Female, 82 years old. Status post colectomy w distention-ileus vs sbo? TECHNIQUE: Two AP supine views of the abdomen and pelvis. COMPARISON: None. FINDINGS: Normal visualized lung bases. There is mild gaseous distention of small intestine loops. There is no demonstrated free abdominal air. There is postoperative change in the soft tissues with subcutaneous air. There is mild degenerative change of the spine . RAD/Abdomen Single View (Portable) IMPRESSION: Gaseous distention of bowel loops with ileus versus enteritis. Electronically Signed: Derek Lord MD at 9:05 EDT ,
[2023-02-27 08:34] VITALS: O2SAT 95
[2023-02-27 09:00] VITALS: BP 146/86; PULSE 87; RESP 16; TEMP 36.6; O2SAT 96
[2023-02-27] MEDS: Enoxaparin 30 MG/0.3 ML Syringe SC (09:38)
[2023-02-27] MEDS: Lactated Ringers 1,000 ML 100 ML IV ×2 (13:47→22:50)
[2023-02-27 15:00] VITALS: BP 143/65; PULSE 75; RESP 16; TEMP 36.9; O2SAT 95
[2023-02-27] MEDS: Bisacodyl 10 MG Suppository RC (18:23)
[2023-02-27 20:48] VITALS: BP 158/75; PULSE 92; RESP 18; TEMP 36.9; O2SAT 94
[2023-02-28 03:35] VITALS: BP 144/83; PULSE 91; RESP 18; TEMP 36.8; O2SAT 94
[2023-02-28 07:04] LABS: Absolute Lymphocyte Count 1.34 X10^3/uL (0.83-4.51); Absolute Neutrophil Count 9.8 X10^3/uL (2.0-7.7); Basophil# 0.03 X10^3/uL; Basophil% 0.3 % (0-1); Eosinophil# 0.01 X10^3/uL; Eosinophils% 0.1 % (0-5); Hematocrit 42.9 % (37-47); Lymphocyte # 1.34 X10^3/ul (0.83-4.51); Lymphocyte % 11.2 % (19-41); Mean Corp Hgb Conc 32.6 g/dL (32-36); Mean Corpuscular Hgb 31.1 pg (27.0-32.0); Mean Corpuscular Volume 95.3 fL (81-99); Mean Platelet Vol. 10.3 fl (6.2-12.0); Monocyte# 0.73 X10^3/uL; Monocyte% 6.1 % (0-10); NRBC Flagged by Analyzer 0 % (0-5); Neutrophil # 9.81 X10^3/uL (2.7-7.7); Neutrophil % 81.9 % (47-70); Platelet Count 243 K/mm3 (150-450); RBC Distribution Width CV 14.8 % (11.6-14.6); RBC Distribution Width SD 52.1 fl (35.1-43.9)
[2023-02-28 07:41] LABS: Anion Gap 8 (5-15); BUN 13 mg/dL (7-18); BUN/Creat Ratio 18.8 RATIO (10-20); Calcium,Total 8.7 mg/dL (8.5-10.1); Chloride 103 mmol/L (98-107); Creatinine, Serum 0.69 mg/dL (0.55-1.02); EST Glomerular Filtration Rate 87 mL/min (>60); Est Glom Filt Rate - Afr Amer 105 mL/min (>60); Estimated Creatinine Clearance 48.15 ml/min; Glucose 107 mg/dL (74-106); Magnesium 2.2 mg/dL (1.6-2.6); Phosphorus 3.2 mg/dL (2.5-4.9); Potassium 3.8 mmol/L (3.5-5.1); Sodium Level 137 mmol/L (136-145)
[2023-02-28] MEDS: Ibuprofen 400 MG Tablet PO ×2 (08:08→18:10)
[2023-02-28 08:38] VITALS: BP 157/94; PULSE 81; RESP 16; TEMP 37; O2SAT 94
[2023-02-28] MEDS: Lactated Ringers 1,000 ML 100 ML IV ×2 (08:50→18:10)
--- NOTE | 2023-02-28 09:34 | PN.SURG_ITS ---
Subjective Subjective Patient seen and examined during AM rounds. She is found sitting out of bed in the chair. She reports 1 bout of emesis last night but nothing overnight or this morning. She has some mild nausea this morning. Additionally, she reports passing gas several times and going to the bathroom and having to medium sized bowel movements. She denies an appetite this morning and states that she does feel somewhat weak. Objective Data Objective Data Vital Signs: Vital Signs Temp Pulse Resp BP Pulse Ox O2 Del Method O2 Flow Rate 98.6 F 81 16 157/94 H 94 Room Air 4 02/28/23 08:38 02/28/23 08:38 02/28/23 08:38 02/28/23 08:38 02/28/23 08:38 02/28/23 08:39 02/24/23 12:30 Oxygen Flow Rate (L/min) 4 Oxygen Delivery Method Room Air Weight: 152 lb 6.383 oz Body Mass Index (BMI) 33.0 Intake & Output: Intake and Output for Last 24 Hours 02/26/23 02/27/23 02/28/23 23:59 23:59 23:59 Intake Total 1556.75 / 1556.75 2704.17 / 2704.17 Output Total 600 / 600 200 / 200 Balance 956.75 / 956.75 2504.17 / 2504.17 Lab / Micro Data 02/28/23 06:29 02/28/23 06:29 Labs: Laboratory Results - last 24 hr 02/28/23 06:29: WBC 12.0 H, RBC 4.50, Hgb 14.0, Hct 42.9, MCV 95.3, MCH 31.1, MCHC 32.6, RDW Std Deviation 52.1 H, RDW Coeff of Jessica 14.8 H, Plt Count 243, MPV 10.3, Immature Gran % (Auto) 0.400, Neut % (Auto) 81.9 H, Lymph % (Auto) 11.2 L, [place] % (Auto) 6.1, Eos % (Auto) 0.1, Baso % (Auto) 0.3, Absolute Neuts (auto) 9.8 H, Absolute Lymphs (auto) 1.34, Nucleated RBC % 0, Sodium 137, Potassium 3.8, Chloride 103, Carbon Dioxide 26.0, Anion Gap 8, BUN 13, Creatinine 0.69, Estim Creat Clear Calc 48.15, Est GFR (MDRD) Af Amer 105, Est GFR (MDRD) Non-Af 87, BUN/Creatinine Ratio 18.8, Glucose 107 H, Calcium 8.7, Phosphorus 3.2, Magnesium 2.2 Physical Exam Const oriented x3 and no apparent distress Resp normal respiratory effort GI GI Narrative: Mildly distended, soft, minimally tender to palpation (patient rates this a 1 out of 10), incisions are well?appearing without erythema or drainage. There is some crusted blood at the most inferior aspect of patient's supraumbilical extraction site. Assessment & Plan Assessment/Plan (1) S/P right colectomy: PLAN: Patient is postoperative day 5 from laparoscopic right hemicolectomy with primary ileocolic anastomosis. She reports an additional bout of emesis last night alongside some flatus into medium sized bowel movements. As declared yesterday, this is suspicious for postoperative ileus. KUB yesterday seem to support this diagnosis with mild distention of both the small bowel and colon. Patient is in need of nutrition and given the bowel function demonstrated over the past 24 hours, would like for her to retry sips of clear liquids. I have discussed giving her an antiemetic prior to drinking. It remains a little bit unclear as to why she is still having the symptoms as her electrolytes all remain within normal limits and her CBC shows a progressive decline in her WBC despite no antibiotics. Additionally, she has not had narcotics or anesthesia for many days now. Plan for today: ? Advance to sips of clears ? Pretreat with antiemetics prior to trying clear liquids ? Repeat suppository today ? Nursing asked to try to get patient through a shower today?patient okay to have shower water hit wounds simply pat dry thereafter ? Ambulate as tolerated and sit out of bed in a chair ? AM labs (2) Colon cancer: QUALIFIERS: Colon location: ascending Qualified Code(s): C18.2 - Malignant neoplasm of ascending colon Charges/Coding Visit Charges Inpatient E&M: 77793 Subs Hosp L2
[2023-02-28] MEDS: Enoxaparin 30 MG/0.3 ML Syringe SC (10:33)
[2023-02-28] MEDS: Bisacodyl 10 MG Suppository RC (10:34)
[2023-02-28] MEDS: Ensure Clear 120 ML Liquid PO (13:35)
[2023-02-28] MEDS: BENZOCAINE/MENTHOL 1 LOZENGE MUCOUS MEM (16:49)
[2023-02-28 16:50] VITALS: BP 152/79; PULSE 72; RESP 16; TEMP 36.7; O2SAT 95
[2023-02-28 22:00] VITALS: BP 127/67; PULSE 76; RESP 18; TEMP 36.7; O2SAT 96
[2023-03-01 04:00] VITALS: BP 148/71; PULSE 64; RESP 16; TEMP 37.1; O2SAT 94
[2023-03-01] MEDS: Lactated Ringers 1,000 ML 100 ML IV (04:01)
[2023-03-01 07:18] LABS: Absolute Lymphocyte Count 1.57 X10^3/uL (0.83-4.51); Absolute Neutrophil Count 6.4 X10^3/uL (2.0-7.7); Basophil# 0.02 X10^3/uL; Basophil% 0.2 % (0-1); Eosinophil# 0.04 X10^3/uL; Eosinophils% 0.5 % (0-5); Hemoglobin 12.4 g/dL (12.0-15.0); Lymphocyte # 1.57 X10^3/ul (0.83-4.51); Mean Corp Hgb Conc 32.6 g/dL (32-36); Mean Corpuscular Hgb 31.2 pg (27.0-32.0); Mean Corpuscular Volume 95.7 fL (81-99); Monocyte# 0.68 X10^3/uL; Monocyte% 7.8 % (0-10); NRBC Flagged by Analyzer 0 % (0-5); Neutrophil # 6.35 X10^3/uL (2.7-7.7); Neutrophil % 72.8 % (47-70); Platelet Count 218 K/mm3 (150-450); RBC Distribution Width CV 14.6 % (11.6-14.6); RBC Distribution Width SD 51.4 fl (35.1-43.9); Red Blood Count 3.97 M/mm3 (4.2-5.4); White Blood Count 8.7 K/mm3 (4.4-11.0)
[2023-03-01 07:33] LABS: Anion Gap 7 (5-15); BUN 12 mg/dL (7-18); BUN/Creat Ratio 22.4 RATIO (10-20); Calcium,Total 8.3 mg/dL (8.5-10.1); Chloride 105 mmol/L (98-107); Creatinine, Serum 0.54 mg/dL (0.55-1.02); EST Glomerular Filtration Rate 116 mL/min (>60); Est Glom Filt Rate - Afr Amer 141 mL/min (>60); Estimated Creatinine Clearance 48.15 ml/min; Glucose 91 mg/dL (74-106); Magnesium 2.2 mg/dL (1.6-2.6); Phosphorus 2.6 mg/dL (2.5-4.9); Potassium 3.7 mmol/L (3.5-5.1); Sodium Level 138 mmol/L (136-145)
[2023-03-01 10:00] VITALS: BP 137/66; PULSE 66; RESP 16; TEMP 36.8; O2SAT 97
[2023-03-01] MEDS: Enoxaparin 30 MG/0.3 ML Syringe SC (10:33)
[2023-03-01] MEDS: Ibuprofen 400 MG Tablet PO ×2 (10:33→18:02)
--- NOTE | 2023-03-01 10:55 | PCM.PN.SRG ---
Subjective Subjective Patient seen and examined during AM rounds. Again, she is found sitting out of bed in the chair. She denies any vomiting overnight and reports minimal nausea this morning. She has tolerated Jell-O and some chicken broth brought in from home. Additionally, she reports passing gas at least 4 times overnight with some green smears. She reports more of an appetite this morning and states that she would be interested in mashed potatoes and eggs if possible. She continues to report that she does feel somewhat weak. Objective Data Objective Data Vital Signs: Vital Signs Temp Pulse Resp BP Pulse Ox O2 Del Method O2 Flow Rate 98.8 F 64 16 148/71 H 94 Room Air 4 03/01/23 04:00 03/01/23 04:00 03/01/23 04:00 03/01/23 04:00 03/01/23 04:00 03/01/23 04:00 02/24/23 12:30 Oxygen Flow Rate (L/min) 4 Oxygen Delivery Method Room Air Weight: 152 lb 6.383 oz Body Mass Index (BMI) 33.0 Intake & Output: Intake and Output for Last 24 Hours 02/27/23 02/28/23 03/01/23 23:59 23:59 23:59 Intake Total 2704.17 / 2704.17 1933.33 / 1933.33 985 / 985 Output Total 200 / 200 Balance 2504.17 / 2504.17 1933.33 / 1933.33 985 / 985 Lab / Micro Data 03/01/23 06:50 03/01/23 06:50 Labs: Laboratory Results - last 24 hr 03/01/23 06:50: WBC 8.7, RBC 3.97 L, Hgb 12.4, Hct 38.0, MCV 95.7, MCH 31.2, MCHC 32.6, RDW Std Deviation 51.4 H, RDW Coeff of Jessica 14.6, Plt Count 218, MPV 10.0, Immature Gran % (Auto) 0.700, Neut % (Auto) 72.8 H, Lymph % (Auto) 18.0 L, [place] % (Auto) 7.8, Eos % (Auto) 0.5, Baso % (Auto) 0.2, Absolute Neuts (auto) 6.4, Absolute Lymphs (auto) 1.57, Nucleated RBC % 0, Sodium 138, Potassium 3.7, Chloride 105, Carbon Dioxide 26.0, Anion Gap 7, BUN 12, Creatinine 0.54 L, Estim Creat Clear Calc 48.15, Est GFR (MDRD) Af Amer 141, Est GFR (MDRD) Non-Af 116, BUN/Creatinine Ratio 22.4 H, Glucose 91, Calcium 8.3 L, Phosphorus 2.6, Magnesium 2.2 Physical Exam Const oriented x3 and no apparent distress Resp normal respiratory effort GI GI Narrative: Mildly distended, soft, mildly tender to palpation in the right abdominal quadrants. Wound appears appropriate beneath Steri-Strips and there is no drainage or erythema. Assessment & Plan Assessment/Plan (1) S/P right colectomy: PLAN: Patient is postoperative day 6 from laparoscopic right hemicolectomy with primary ileocolic anastomosis. She reports no additional emesis last night and more regular flatus. She states that her nausea is overall improved this morning but still subtly present. She tolerated small volumes of clear liquids but admits that she does not have an appetite for these things. She expresses an appetite for mashed potatoes and eggs so I will plan to advance her to a full liquid diet. If there are issues with intolerance then we will make her n.p.o. and plan to perform CT imaging with enteral contrast. It remains a little bit unclear as to why she is still having the symptoms as her electrolytes all remain within normal limits and her CBC now is within normal limits as well. Additionally, she has not had narcotics or anesthesia for many days now. Plan for today: ? Advance to full liquid diet ? Pretreat with antiemetics prior to taking diet ? Repeat suppository today ? Ambulate as tolerated and sit out of bed in a chair ? AM labs (2) Colon cancer: QUALIFIERS: Colon location: ascending Qualified Code(s): C18.2 - Malignant neoplasm of ascending colon Charges/Coding Visit Charges Inpatient E&M: 88327 Init Hosp L2
[2023-03-01] MEDS: Bisacodyl 10 MG Suppository RC (12:19)
[2023-03-01] MEDS: Lactated Ringers 1,000 ML 75 ML IV (14:42)
[2023-03-01 15:41] VITALS: BP 121/62; PULSE 71; RESP 16; TEMP 36.9; O2SAT 95
[2023-03-01] MEDS: Ensure Clear 120 ML Liquid PO (18:02)
[2023-03-01 22:31] VITALS: BP 141/66; PULSE 67; RESP 18; TEMP 36.9; O2SAT 97
[2023-03-02] MEDS: Lactated Ringers 1,000 ML 75 ML IV ×2 (03:33→16:49)
[2023-03-02 03:41] VITALS: BP 141/67; PULSE 65; RESP 18; TEMP 36.7; O2SAT 95
[2023-03-02] MEDS: Ibuprofen 400 MG Tablet PO ×3 (03:49→22:35)
[2023-03-02 10:00] VITALS: BP 144/74; PULSE 77; RESP 16; TEMP 36.9; O2SAT 96
--- NOTE | 2023-03-02 10:06 | RAD_ITS ---
STUDY: X-RAY - ABDOMEN/PELVIS REASON FOR EXAM: Female, 82 years old. Follow-up bowel gas pattern TECHNIQUE: Two AP supine views of the abdomen and pelvis. COMPARISON: February 27, 2023 FINDINGS: Normal visualized lung bases. There are dilated loops of the small intestine with a non-distended colon consistent with a small bowel obstruction. There is no demonstrated free abdominal air. Normal soft tissue structures. There is degenerative change of the spine. RAD/Abdomen Single View (Portable) IMPRESSION: Small bowel obstruction. Electronically Signed: Derek Lord MD at 22:35 EDT ,
[2023-03-02] MEDS: Enoxaparin 40 MG/0.4 ML Syringe SC (10:27)
[2023-03-02] MEDS: Bisacodyl 10 MG Suppository RC (10:27)
--- NOTE | 2023-03-02 10:37 | CT_ITS ---
STUDY: CT ABDOMEN AND PELVIS WITH CONTRAST - URINARY TRACT REASON FOR EXAM: Female, 82 years old. Decreased bowel function s/p right hemicolectomy RADIATION DOSAGE (If Supplied By Facility): CTDIvol = ( 17.02 ) mGy, DLP = ( 795.98 ) mGycm TECHNIQUE: Oral and amp; IV Gastrografin and amp; 75mL Isovue-300 was administered. Transaxial images were obtained from the dome of the diaphragm to the symphysis pubis subsequent to intravenous contrast administration. Multiplanar coronal and sagittal images were reformatted. Individualized Dose Optimization Techniques Were Used For This CT. COMPARISON: January 28, 2023 FINDINGS: There are small bilateral pleural effusions associated with lower lobe consolidation. The visualized portions of the heart are within normal limits. Normal liver. Normal gallbladder and extrahepatic biliary system. Normal spleen. Normal pancreas. Normal bilateral adrenal glands. Normal visualized stomach. There are dilated fluid-filled loops of small bowel. There is contrast noted within the proximal and mid small bowel. There are anastomotic sutures within the terminal ileum and and hepatic flexure of the colon. There is evidence of prior right hemicolectomy. There is free fluid within the right upper quadrant. Normal abdominal aorta. No retroperitoneal adenopathy. Normal right kidney. There is stable prominence of the left renal pelvis. Normal urinary bladder. There are postsurgical changes within the anterior lateral abdominal luu. There are diffuse degenerative changes of the visualized lumbar spine. There is a grade 1 anterior spondylolisthesis of L4 on L5. CT/Abdomen/Pelvis WITH Contrast IMPRESSION: Findings concerning for a small bowel obstruction. Small bilateral pleural effusions associated with minimal lower lobe dependent consolidation. Electronically Signed: Viviana Laughlin MD at 14:58 EDT ,
--- NOTE | 2023-03-02 12:10 | PN.SURG_ITS ---
Subjective Subjective Patient seen and examined during AM rounds. She is found resting in bed. She denies any vomiting overnight and reports minimal nausea this morning. However, this morning she reports that she is feeling full quickly and has not had any gas or bowel movement since last evening. Objective Data Objective Data Vital Signs: Vital Signs Temp Pulse Resp BP Pulse Ox O2 Del Method O2 Flow Rate 98.5 F 77 16 144/74 H 96 Room Air 4 03/02/23 10:00 03/02/23 10:00 03/02/23 10:00 03/02/23 10:00 03/02/23 10:00 03/02/23 10:00 02/24/23 12:30 Oxygen Flow Rate (L/min) 4 Oxygen Delivery Method Room Air Weight: 152 lb 6.383 oz Body Mass Index (BMI) 33.0 Intake & Output: Intake and Output for Last 24 Hours 02/28/23 03/01/23 03/02/23 23:59 23:59 23:59 Intake Total 3.33 / 1933.33 1964 / 1964 963.75 / 963.75 Balance 1933.33 / 1933.33 1964 / 1964 963.75 / 963.75 Lab / Micro Data 03/01/23 06:50 03/01/23 06:50 Physical Exam Const oriented x3 Resp normal respiratory effort GI GI Narrative: Mildly distended, mildly tympanic, operative wound looks appropriate with Steri- Strips still intact. Largely nontender to palpation. Assessment & Plan Assessment/Plan (1) S/P right colectomy: PLAN: Patient is postoperative day 7 from laparoscopic right hemicolectomy with primary ileocolic anastomosis. She reports no additional emesis last night but she has not had as much flatus and no further bowel activity since yesterday. She states that her nausea remains overall improved this morning but still subtly present. She technically tolerated a transitional diet but complains that her appetite is minimal. I am concerned for a possible persistent ileus versus partial small bowel obstruction. We will obtain a portable KUB this morning but if inconclusive will obtain a CT of the abdomen pelvis with p.o. and IV contrast. Plan for today: ? Continue transitional diet ? Pretreat with antiemetics prior to taking diet ? Repeat suppository today ? KUB and possible CT of the abdomen pelvis ? Ambulate as tolerated and sit out of bed in a chair ? AM labs (2) Colon cancer: QUALIFIERS: Colon location: ascending Qualified Code(s): C18.2 - Malignant neoplasm of ascending colon Charges/Coding Visit Charges Inpatient E&M: 10888 Subs Hosp L2
[2023-03-02 14:59] VITALS: BP 158/77; PULSE 68; RESP 16; TEMP 36.8; O2SAT 96
[2023-03-02 22:28] VITALS: BP 146/67; PULSE 74; RESP 14; TEMP 36.6; O2SAT 97
[2023-03-03] VITALS (12 sets, daily range): BP systolic 121–172; BP diastolic 59–90; PULSE 65–93; RESP 11–18; TEMP 36.3–36.9; O2SAT 72–100; BMI 33.0
[2023-03-03] MEDS: 0.9% Normal Saline (1000mL) 1,000 ML 100 ML IV (00:29)
[2023-03-03 06:20] LABS: Absolute Lymphocyte Count 1.39 X10^3/uL (0.83-4.51); Absolute Neutrophil Count 6.4 X10^3/uL (2.0-7.7); Basophil# 0.05 X10^3/uL; Basophil% 0.6 % (0-1); Eosinophil# 0.08 X10^3/uL; Eosinophils% 0.9 % (0-5); Hematocrit 43.1 % (37-47); Hemoglobin 14.2 g/dL (12.0-15.0); Lymphocyte # 1.39 X10^3/ul (0.83-4.51); Mean Corp Hgb Conc 32.9 g/dL (32-36); Mean Corpuscular Hgb 30.7 pg (27.0-32.0); Mean Corpuscular Volume 93.3 fL (81-99); Mean Platelet Vol. 10.1 fl (6.2-12.0); Monocyte# 0.77 X10^3/uL; Monocyte% 8.8 % (0-10); NRBC Flagged by Analyzer 0 % (0-5); Neutrophil # 6.36 X10^3/uL (2.7-7.7); Platelet Count 270 K/mm3 (150-450); RBC Distribution Width CV 14.6 % (11.6-14.6); RBC Distribution Width SD 49.4 fl (35.1-43.9); Red Blood Count 4.62 M/mm3 (4.2-5.4); White Blood Count 8.7 K/mm3 (4.4-11.0)
[2023-03-03 06:49] LABS: Anion Gap 6 (5-15); BUN 7 mg/dL (7-18); BUN/Creat Ratio 11.4 RATIO (10-20); Calcium,Total 8.4 mg/dL (8.5-10.1); Chloride 107 mmol/L (98-107); Creatinine, Serum 0.62 mg/dL (0.55-1.02); EST Glomerular Filtration Rate 99 mL/min (>60); Est Glom Filt Rate - Afr Amer 120 mL/min (>60); Estimated Creatinine Clearance 48.15 ml/min; Glucose 137 mg/dL (74-106); Phosphorus 3.3 mg/dL (2.5-4.9); Potassium 3.3 mmol/L (3.5-5.1); Sodium Level 139 mmol/L (136-145)
--- NOTE | 2023-03-03 08:10 | PCM.PN.SRG ---
Subjective Subjective Patient seen and examined during AM rounds. She is found resting in a chair. She states that she ate something last evening that had her feeling very sick but feels better this morning. She also reports that she had lots of flatus overnight but no bowel movement. Objective Data Objective Data Vital Signs: Vital Signs Temp Pulse Resp BP Pulse Ox O2 Del Method O2 Flow Rate 98 F 71 12 172/84 H 94 Room Air 4 03/03/23 08:05 03/03/23 08:05 03/03/23 08:05 03/03/23 08:05 03/03/23 08:05 03/03/23 08:05 02/24/23 12:30 Oxygen Flow Rate (L/min) 4 Oxygen Delivery Method Room Air Weight: 152 lb 6.383 oz Body Mass Index (BMI) 33.0 Intake & Output: Intake and Output for Last 24 Hours 03/01/23 03/02/23 03/03/23 23:59 23:59 23:59 Intake Total 1964 2898.75 / 3348.75 1000 / 1000 Balance 1964 2898.75 / 3348.75 1000 / 1000 Lab / Micro Data 03/03/23 05:55 03/03/23 05:55 Labs: Laboratory Results - last 24 hr 03/03/23 05:55: WBC 8.7, RBC 4.62, Hgb 14.2, Hct 43.1, MCV 93.3, MCH 30.7, MCHC 32.9, RDW Std Deviation 49.4 H, RDW Coeff of Jessica 14.6, Plt Count 270, MPV 10.1, Immature Gran % (Auto) 0.700, Neut % (Auto) 73.0 H, Lymph % (Auto) 16.0 L, [place] % (Auto) 8.8, Eos % (Auto) 0.9, Baso % (Auto) 0.6, Absolute Neuts (auto) 6.4, Absolute Lymphs (auto) 1.39, Nucleated RBC % 0, Sodium 139, Potassium 3.3 L, Chloride 107, Carbon Dioxide 26.0, Anion Gap 6, BUN 7, Creatinine 0.62, Estim Creat Clear Calc 48.15, Est GFR (MDRD) Af Amer 120, Est GFR (MDRD) Non-Af 99, BUN/Creatinine Ratio 11.4, Glucose 137 H, Calcium 8.4 L, Phosphorus 3.3, Magnesium 2.0 Radiography Diagnostic Testing: Radiology Impression KUB X-Ray 03/02/23 10:06 IMPRESSION: Small bowel obstruction. Electronically Signed: Derek Lord MD at 22:35 EDT , Abdomen/Pelvis CT 03/02/23 10:37 IMPRESSION: Findings concerning for a small bowel obstruction. Small bilateral pleural effusions associated with minimal lower lobe dependent consolidation. Electronically Signed: Viviana Laughlin MD at 14:58 EDT , Physical Exam Const oriented x3 Resp normal respiratory effort GI GI Narrative: Decreased abdominal distention, wounds are well-healing with Steri-Strips still intact, soft, nontender to palpation Assessment & Plan Assessment/Plan (1) S/P right colectomy: PLAN: Patient is postoperative day 8 from laparoscopic right hemicolectomy with primary ileocolic anastomosis. She reports no additional emesis last night but states that she felt sick after eating. Then she went on to have a number of episodes of flatus and reports that she is feeling better today. Yesterday CT with oral and IV contrast was read as concerning for possible small bowel obstruction but the above suggest that this is a partial obstruction versus an ileus. I will obtain another KUB this morning to assess whether the contrast is entering the colon. If shared with patient and her family that if is not entered the colon then I would plan for an operation today with diagnostic laparoscopy. Plan for today: ? Continue n.p.o. ? Continue IV fluid support ? Replete potassium today ? KUB repeat ? Ambulate as tolerated and sit out of bed in a chair ? AM labs (2) Colon cancer: QUALIFIERS: Colon location: ascending Qualified Code(s): C18.2 - Malignant neoplasm of ascending colon Charges/Coding Visit Charges Inpatient E&M: 98295 Subs Hosp L2
--- NOTE | 2023-03-03 08:37 | RAD_ITS ---
INDICATION: f/u question of SBO vs ileus EXAMINATION/TECHNIQUE: X-RAY - XR Abdomen 1 View COMPARISON: March 02, 2023 FINDINGS: BOWEL GAS PATTERN: There are grossly stable gas-filled and dilated loops of small bowel. FREE AIR: Not assessed on a single supine view. ORGANOMEGALY: Not seen. CALCIFICATIONS: No abnormal calcifications observed. LOWER CHEST: No acute pathology. BONES AND SOFT TISSUES: No acute pathology. RAD/Abdomen Single View (Portable) IMPRESSION: Findings concerning for a stable small bowel ileus or obstruction. Electronically Signed: Viviana Laughlin MD at 9:33 EDT ,
[2023-03-03] MEDS: 0.9% Normal Saline (1000mL) 1,000 ML 75 ML IV (10:02)
[2023-03-03] MEDS: Potassium Chloride 10mEq/100mL 10 MEQ/100 ML IV.SOLN. 70 MEQ IV BOLUS (10:02)
[2023-03-03] MEDS: Potassium Chloride 10mEq/100mL 10 MEQ/100 ML IV.SOLN. 50 MEQ IV BOLUS ×2 (11:29→13:43)
--- NOTE | 2023-03-03 12:51 | NURSING ---
1145-pt off unit for surgery
[2023-03-03] MEDS: Cefazolin 2 GM in 0.9% Normal Saline (100mL Bag) 100 ML IV (13:09)
[2023-03-03] MEDS: Bupivacaine 0.25% 30 ML Vial (14:21)
--- NOTE | 2023-03-03 14:22 | OP.PCM_ITS ---
Report of Operation Date of Procedure: 03/03/23 Pre-Operative Diagnosis: Partial small bowel obstruction versus ileus status po st laparoscopic right hemicolectomy Post-Operative Diagnosis: Partial small bowel obstruction status post laparoscopic right hemicolectomy Surgery/Procedure Performed:: Diagnostic laparoscopy Description of Surgical Findings:: Intact ileocolic anastomosis with decompressed bowel just prior to the anastomosis as it appeared trapped beneath the weight of overlying, distended small bowel Surgeon: Tima Champion seamer panty hose: Fátima Kingsley Type of Anesthesia: General/Supplemental Anesthesiologist: Dwight Green Specimen's removed: None Estimated Blood Loss (mL): 10 Description of Procedure: After confirming consent in the preoperative holding area patient was brought to the operating room where she was positioned supine on the operating room table. There, preoperative antibiotics were administered with 2 g Ancef. Patient was then induced with general endotracheal anesthetic and intubated. A Mcneil catheter was placed with sterile technique for accurate ins and outs monitoring during the operation. Meanwhile at the head of the bed anesthesia placed a orogastric tube. Patient's abdomen was prepped and draped in usual sterile fashion. Formal timeout followed to confirm patient and procedure. Her procedure was begun with an infraumbilical incision and placement of a 12 mm Mason balloon trocar after finger sweep was used to confirm intraperitoneal position. The patient's abdomen was insufflated to 15 mmHg. Laparoscopic investigation revealed no inadvertent injury to the viscera below but there were a number of adhesions between the greater omentum and the patient's anterior abdominal wall. Patient's lower abdominal quadrants and right upper quadrant were largely free of adhesions so a second 5 mm trocar was placed in the right lower quadrant under laparoscopic visualization. From this vantage point I was able to bluntly sweep away patient's adhesions of the omentum to the abdominal wall and thereby create room in the left upper quadrant for placement of a third 5 mm port. This was placed under laparoscopic visualization and the peritoneum was inspected. Overall, patient appeared to have diffusely dilated small bowel and a small amount of serous fluid in Morison's pouch adjacent the liver. I did not believe complete running of the bowel would be necessarily safe given the sylvia wel's dilated appearance so I sought to identify her anastomosis and work from distal to proximal. The greater omentum was grasped and elevated thereby exposing our anastomosis and I confirmed that both the colon and small bowel comprising this anastomosis appeared viable. The omental cover, placed at the time of surgery, remained intact. I did note that the ileum contributing to the anastomosis and just proximal, appeared somewhat decompressed. In a [id number] fashion I ran the small bowel more proximal to this location and found a small section of it pinned underneath more dilated, heavier, proximal small bowel. Running this bowel slightly further I encountered simply more dilated small bowel. Here, I decided that any further evaluation of the bowel would simply invite increased risk for inadvertent enterotomy and ceased the operation. A small amount of oozing had occurred from bluntly sweeping down patient's omental adhesions and thus the abdomen was irrigated with warm sterile saline using her suction radiator mechanic and the effluent was suctioned free until it ran clear. Once again, I returned to the anastomosis and confirmed that the distal small bowel entering the anastomosis was positioned in a gentle curve from the dilated proximal intestine to the anastomosis. Then evacuated pneumoperitoneum and set about fascial closure at the infraumbilical port site. This was achieved with a #1 Vicryl suture in a [id number] fashion. Additional local anesthetic was instilled at each port site and the ports were closed in subcuticular fashion using 4-0 Monocryl. Steri-Strips and OpSite's were used as bandages. Mcneil catheter was removed prior to awakening along with orogastric tube. Patient was awoken and transferred to PACU for ongoing recovery. Complications no Admit VTE Documentation VTE Present on Admission: Yes VTE Mechan Device Prophylaxis: SCD's
[2023-03-03] MEDS: 0.9% Normal Saline (1000mL) 1,000 ML 95 ML IV (17:25)
[2023-03-03] MEDS: Ibuprofen 400 MG Tablet PO (23:32)
[2023-03-03] MEDS: BENZOCAINE/MENTHOL 1 LOZENGE MUCOUS MEM (23:36)
[2023-03-04 03:18] VITALS: BP 145/82; PULSE 64; RESP 18; TEMP 36.8; O2SAT 95
[2023-03-04] MEDS: 0.9% Normal Saline (1000mL) 1,000 ML 100 ML IV ×3 (03:20→22:53)
[2023-03-04 06:30] VITALS: BP 134/66; PULSE 68; RESP 18; TEMP 36.7; O2SAT 98
--- NOTE | 2023-03-04 06:43 | PN.SURG_ITS ---
Subjective Subjective Patient seen and examined during AM rounds. She is found resting out of bed in a chair. She happily reports that she felt much better following her surgery yesterday and has already been passing gas. She denies significant abdominal pain. She does share that nursing has collected a urine sample after she compla ined of some burning with urination and also has made mention of a concern for some whitish discoloration of her tongue. Objective Data Objective Data Vital Signs: Vital Signs Temp Pulse Resp BP Pulse Ox O2 Del Method O2 Flow Rate 98.1 F 68 18 134/66 H 98 Room Air 4 03/04/23 06:30 03/04/23 06:30 03/04/23 06:30 03/04/23 06:30 03/04/23 06:30 03/04/23 06:30 03/03/23 14:59 Oxygen Flow Rate (L/min) 4 Oxygen Delivery Method Room Air Weight: 152 lb 6.383 oz Body Mass Index (BMI) 33.0 Intake & Output: Intake and Output for Last 24 Hours 03/02/23 03/03/23 03/04/23 23:59 23:59 23:59 Intake Total 2898.75 / 3348.75 3286.09 / 3286.09 833.33 / 833.33 Output Total 750 / 750 Balance 2898.75 / 3348.75 2536.09 / 2536.09 833.33 / 833.33 Lab / Micro Data 03/04/23 07:05 03/04/23 07:05 Labs: Laboratory Results - last 24 hr 03/03/23 05:55: Sodium 139, Potassium 3.3 L, Chloride 107, Carbon Dioxide 26.0, Anion Gap 6, BUN 7, Creatinine 0.62, Estim Creat Clear Calc 48.15, Est GFR ( MDRD) Af Amer 120, Est GFR (MDRD) Non-Af 99, BUN/Creatinine Ratio 11.4, Glucose 137 H, Calcium 8.4 L, Phosphorus 3.3, Magnesium 2.0 Radiography Diagnostic Testing: Radiology Impression KUB X-Ray 03/03/23 08:37 IMPRESSION: Findings concerning for a stable small bowel ileus or obstruction. Electronically Signed: Viviana Laughlin MD at 9:33 EDT , Physical Exam Const oriented x3 and no apparent distress HEENT Mouth: tongue normal Resp normal respiratory effort GI GI Narrative: Mildly distended, bruising across lower abdomen, operative port sites remain dressed with minimal strikethrough of bloody drainage. Abdomen is mildly tender to palpation about operative sites. Assessment & Plan Assessment/Plan (1) S/P right colectomy: PLAN: Patient is postoperative day 9 from laparoscopic right hemicolectomy with primary ileocolic anastomosis and day 1 from return to the OR with diagnostic laparoscopy and finding of a partial small bowel obstruction. She reports feeling much better after surgery yesterday and confirms passage of flatus. Seen later in the day she reports ongoing flatus. Clear liquid diet was initiated and patient expresses some desire for advancement given that it is still not offering her many choices, but denies any significant nausea. Plan for today: ? Continue clear liquid diet ? Continue IV fluid support ? Ambulate as tolerated and sit out of bed in a chair ? AM labs; plan to resume use of enoxaparin if hemoglobin stable tomorrow (2) Colon cancer: QUALIFIERS: Colon location: ascending Qualified Code(s): C18.2 - Malignant neoplasm of ascending colon Charges/Coding Visit Charges Inpatient E&M: 97823 Subs Hosp L2
[2023-03-04 07:19] LABS: Absolute Lymphocyte Count 1.15 X10^3/uL (0.83-4.51); Absolute Neutrophil Count 9.5 X10^3/uL (2.0-7.7); Basophil# 0.04 X10^3/uL; Basophil% 0.4 % (0-1); Hematocrit 42.1 % (37-47); Hemoglobin 13.7 g/dL (12.0-15.0); Lymphocyte # 1.15 X10^3/ul (0.83-4.51); Lymphocyte % 10.1 % (19-41); Mean Corp Hgb Conc 32.5 g/dL (32-36); Mean Corpuscular Volume 95.2 fL (81-99); Mean Platelet Vol. 9.9 fl (6.2-12.0); Monocyte# 0.65 X10^3/uL; Monocyte% 5.7 % (0-10); NRBC Flagged by Analyzer 0 % (0-5); Neutrophil # 9.49 X10^3/uL (2.7-7.7); Neutrophil % 83.3 % (47-70); Platelet Count 298 K/mm3 (150-450); RBC Distribution Width CV 14.6 % (11.6-14.6); RBC Distribution Width SD 51.8 fl (35.1-43.9); Red Blood Count 4.42 M/mm3 (4.2-5.4); White Blood Count 11.4 K/mm3 (4.4-11.0)
[2023-03-04 07:51] LABS: Anion Gap 6 (5-15); BUN 9 mg/dL (7-18); BUN/Creat Ratio 14.9 RATIO (10-20); Calcium,Total 8.1 mg/dL (8.5-10.1); Chloride 109 mmol/L (98-107); Creatinine, Serum 0.61 mg/dL (0.55-1.02); EST Glomerular Filtration Rate 101 mL/min (>60); Est Glom Filt Rate - Afr Amer 122 mL/min (>60); Estimated Creatinine Clearance 48.15 ml/min; Glucose 104 mg/dL (74-106); Magnesium 2.1 mg/dL (1.6-2.6); Potassium 4.2 mmol/L (3.5-5.1); Sodium Level 139 mmol/L (136-145)
[2023-03-04 08:15] VITALS: O2SAT 95
[2023-03-04 08:26] LABS: Bacteria 0 SEEN /hpf (None Seen); Mucous, Urine 0 SEEN /hpf (<or=2+); Red Blood Cells-Urine 0 SEEN /hpf (0-5); Squamous Epithelial Cells - UA 0 SEEN /hpf (5-10); White Blood Cells 0 SEEN /hpf (0-5)
[2023-03-04 08:45] LABS: Color, Urine Yellow (Yellow); Glucose, Dipstick Normal (Normal); Ketone-Dipstick 15 mg/dl (Negative); Leukocyte Esterase-Dipstick Negative /ul (Negative); Nitrite-Dipstick Negative (Negative); Occult Blood-Urine Negative /ul (Negative); Protein-Dipstick Negative (Negative); Specific Gravity, Urine 1.015 (1.002-1.030); Urine Bilirubin Dipstick Negative (Negative); Urine Clarity Clear (Clear); Urine Urobilinogen Normal (Normal); Urine pH 6.5 (5.0 - 8.0)
[2023-03-04] MEDS: Ensure Clear 120 ML Liquid PO (10:07)
[2023-03-04 11:00] VITALS: BP 143/63; PULSE 82; RESP 17; TEMP 36.6; O2SAT 96
[2023-03-04] MEDS: Ibuprofen 400 MG Tablet PO ×2 (11:42→17:38)
[2023-03-04 15:06] VITALS: BP 112/72; PULSE 76; RESP 16; TEMP 36.8; O2SAT 96
[2023-03-05] MEDS: Ibuprofen 400 MG Tablet PO ×5 (00:32→23:03)
[2023-03-05 00:35] VITALS: BP 144/84; PULSE 81; RESP 16; TEMP 36.6; O2SAT 94
[2023-03-05 06:00] VITALS: BP 134/66; PULSE 69; RESP 16; TEMP 37; O2SAT 97
[2023-03-05 07:04] LABS: Absolute Lymphocyte Count 2.14 X10^3/uL (0.83-4.51); Absolute Neutrophil Count 5.7 X10^3/uL (2.0-7.7); Basophil# 0.04 X10^3/uL; Basophil% 0.5 % (0-1); Eosinophil# 0.09 X10^3/uL; Hematocrit 39.7 % (37-47); Lymphocyte # 2.14 X10^3/ul (0.83-4.51); Lymphocyte % 24.9 % (19-41); Mean Corp Hgb Conc 32.7 g/dL (32-36); Mean Corpuscular Hgb 31.1 pg (27.0-32.0); Mean Platelet Vol. 9.6 fl (6.2-12.0); Monocyte# 0.64 X10^3/uL; Monocyte% 7.4 % (0-10); NRBC Flagged by Analyzer 0 % (0-5); Neutrophil # 5.66 X10^3/uL (2.7-7.7); Neutrophil % 65.7 % (47-70); Platelet Count 287 K/mm3 (150-450); RBC Distribution Width CV 15.1 % (11.6-14.6); RBC Distribution Width SD 52.3 fl (35.1-43.9); Red Blood Count 4.18 M/mm3 (4.2-5.4); White Blood Count 8.6 K/mm3 (4.4-11.0)
[2023-03-05 07:38] LABS: Anion Gap 5 (5-15); BUN 8 mg/dL (7-18); BUN/Creat Ratio 14.8 RATIO (10-20); Calcium,Total 7.9 mg/dL (8.5-10.1); Chloride 113 mmol/L (98-107); Creatinine, Serum 0.54 mg/dL (0.55-1.02); EST Glomerular Filtration Rate 115 mL/min (>60); Est Glom Filt Rate - Afr Amer 139 mL/min (>60); Estimated Creatinine Clearance 48.15 ml/min; Glucose 87 mg/dL (74-106); Magnesium 2.1 mg/dL (1.6-2.6); Phosphorus 2.1 mg/dL (2.5-4.9); Potassium 3.6 mmol/L (3.5-5.1); Sodium Level 142 mmol/L (136-145)
--- NOTE | 2023-03-05 08:01 | PN.SURG_ITS ---
Subjective Subjective Patient seen and examined during AM rounds. She was found doing her hair in the restroom. She notes that she is feeling very swollen in her abdomen and her legs. Nursing requests a decrease in her IV fluids. Ms. Melgar denies any present nausea and states that she is hungry for something other than her clear liquid diet. She confirms that she is still passing flatus. Objective Data Objective Data Vital Signs: Vital Signs Temp Pulse Resp BP Pulse Ox O2 Del Method O2 Flow Rate 98.6 F 69 16 134/66 H 97 Room Air 4 03/05/23 06:00 03/05/23 06:00 03/05/23 06:00 03/05/23 06:00 03/05/23 06:00 03/05/23 06:00 03/03/23 14:59 Oxygen Flow Rate (L/min) 4 Oxygen Delivery Method Room Air Weight: 152 lb 6.383 oz Body Mass Index (BMI) 33.0 Intake & Output: Intake and Output for Last 24 Hours 03/03/23 03/04/23 03/05/23 23:59 23:59 23:59 Intake Total 3286.09 / 3286.09 3638.33 / 3638.33 Output Total 750 / 750 Balance 2536.09 / 2536.09 3638.33 / 3638.33 Lab / Micro Data 03/05/23 06:50 03/05/23 06:50 Labs: Laboratory Results - last 24 hr 03/04/23 08:00: Urine Color Yellow, Urine Clarity Clear, Urine pH 6.5, Ur Specific [place] 1.015, Urine Protein Negative, Urine Glucose (UA) Normal, Urine Ketones 15 H, Urine Occult Blood Negative, Urine Nitrite Negative, Urine Bilirubin Negative, Urine Urobilinogen Normal, Ur Leukocyte Esterase Negative, Urine RBC 0 SEEN, Urine WBC 0 SEEN, Ur Squamous Epith Cells 0 SEEN, Urine Bacteria 0 SEEN, Urine Mucus 0 SEEN 03/05/23 06:50: WBC 8.6, RBC 4.18 L, Hgb 13.0, Hct 39.7, MCV 95.0, MCH 31.1, MCHC 32.7, RDW Std Deviation 52.3 H, RDW Coeff of Jessica 15.1 H, Plt Count 287, MPV 9.6, Immature Gran % (Auto) 0.500, Neut % (Auto) 65.7, Lymph % (Auto) 24.9, [place] % (Auto) 7.4, Eos % (Auto) 1.0, Baso % (Auto) 0.5, Absolute Neuts (auto) 5.7, Absolute Lymphs (auto) 2.14, Nucleated RBC % 0, Sodium 142, Potassium 3.6, Chloride 113 H, Carbon Dioxide 24.0, Anion Gap 5, BUN 8, Creatinine 0.54 L, Estim Creat Clear Calc 48.15, Est GFR (MDRD) Af Amer 139, Est GFR (MDRD) Non-Af 115, BUN/Creatinine Ratio 14.8, Glucose 87, Calcium 7.9 L, Phosphorus 2.1 L, Magnesium 2.1 Physical Exam Const oriented x3 and no apparent distress Resp normal respiratory effort GI GI Narrative: Mildly distended, operative wounds remain appropriate beneath Steri-Strips. There is minimal tenderness with palpation. Assessment & Plan Assessment/Plan (1) S/P right colectomy: PLAN: Patient is postoperative day 10 from laparoscopic right hemicolectomy with primary ileocolic anastomosis and day 2 from return to the OR with diagnostic laparoscopy and finding of a partial small bowel obstruction. She continues to report bowel function with regular flatus but has not yet had a bowel movement. She reports an appetite for something other than her clear liquids. Since there was no bowel resection undertaken 2 days ago we will plan to advance to full liquid diet. For patient's complaints of edema will decrease her IV fluid rate as well as administer a single dose of Lasix and follow for results. Plan for today: ? Advance to full liquid diet ? Continue IV fluid support but decrease rate ? Resume enoxaparin ? Replete phosphate today ? Ambulate as tolerated and sit out of bed in a chair ? AM labs to follow-up diuresis and repletion of phosphate (2) Colon cancer: QUALIFIERS: Colon location: ascending Qualified Code(s): C18.2 - Malignant neoplasm of ascending colon Charges/Coding Visit Charges Inpatient E&M: 43192 Subs Hosp L2
[2023-03-05 08:59] VITALS: BP 120/78; PULSE 74; RESP 16; TEMP 36.3; O2SAT 94
[2023-03-05] MEDS: Ensure Clear 120 ML Liquid PO (09:22)
[2023-03-05] MEDS: Enoxaparin 40 MG/0.4 ML Syringe SC (09:23)
[2023-03-05] MEDS: 0.9% Normal Saline (1000mL) 1,000 ML 100 ML IV (09:23)
[2023-03-05] MEDS: Furosemide 20 MG/2 ML VIAL IV (09:23)
[2023-03-05] MEDS: Potassium Phosphate 15 MM in 0.9% Normal Saline (250mL Bag) 250 ML 125 MM IV (09:50)
[2023-03-05 11:25] VITALS: BP 121/61; PULSE 88; RESP 16; TEMP 36.7; O2SAT 97
[2023-03-05 15:23] VITALS: BP 124/69; PULSE 77; RESP 16; TEMP 36.9; O2SAT 95
[2023-03-05 23:00] VITALS: BP 128/72; PULSE 80; RESP 18; TEMP 36.6; O2SAT 95
[2023-03-06 04:38] LABS: Absolute Lymphocyte Count 2.24 X10^3/uL (0.83-4.51); Absolute Neutrophil Count 5.2 X10^3/uL (2.0-7.7); Basophil# 0.03 X10^3/uL; Basophil% 0.4 % (0-1); Eosinophil# 0.12 X10^3/uL; Eosinophils% 1.4 % (0-5); Hematocrit 37.6 % (37-47); Hemoglobin 12.8 g/dL (12.0-15.0); Lymphocyte # 2.24 X10^3/ul (0.83-4.51); Lymphocyte % 27.1 % (19-41); Mean Corpuscular Hgb 31.8 pg (27.0-32.0); Mean Corpuscular Volume 93.5 fL (81-99); Mean Platelet Vol. 9.4 fl (6.2-12.0); Monocyte# 0.66 X10^3/uL; NRBC Flagged by Analyzer 0 % (0-5); Neutrophil # 5.19 X10^3/uL (2.7-7.7); Neutrophil % 62.6 % (47-70); Platelet Count 266 K/mm3 (150-450); RBC Distribution Width CV 14.9 % (11.6-14.6); RBC Distribution Width SD 51.6 fl (35.1-43.9); Red Blood Count 4.02 M/mm3 (4.2-5.4); White Blood Count 8.3 K/mm3 (4.4-11.0)
[2023-03-06 05:00] VITALS: BP 138/94; PULSE 68; RESP 16; TEMP 36.6; O2SAT 95
[2023-03-06 05:03] LABS: Anion Gap 3 (5-15); BUN 7 mg/dL (7-18); BUN/Creat Ratio 10.9 RATIO (10-20); Calcium,Total 8.1 mg/dL (8.5-10.1); Chloride 111 mmol/L (98-107); Creatinine, Serum 0.64 mg/dL (0.55-1.02); EST Glomerular Filtration Rate 94 mL/min (>60); Est Glom Filt Rate - Afr Amer 114 mL/min (>60); Estimated Creatinine Clearance 48.15 ml/min; Glucose 101 mg/dL (74-106); Magnesium 2.1 mg/dL (1.6-2.6); Phosphorus 2.9 mg/dL (2.5-4.9); Potassium 3.8 mmol/L (3.5-5.1); Sodium Level 140 mmol/L (136-145)
[2023-03-06] MEDS: Ibuprofen 400 MG Tablet PO ×4 (06:01→23:18)
[2023-03-06 09:08] VITALS: BP 133/71; PULSE 69; RESP 16; TEMP 36.8; O2SAT 98
[2023-03-06] MEDS: Enoxaparin 40 MG/0.4 ML Syringe SC (09:44)
[2023-03-06] MEDS: Bisacodyl 10 MG Suppository RC ×2 (10:48→18:57)
[2023-03-06 11:15] VITALS: BP 136/70; PULSE 97; RESP 16; TEMP 36.8; O2SAT 97
--- NOTE | 2023-03-06 11:52 | PN.SURG_ITS ---
Subjective Subjective Patient is tolerating full liquid. Did give patient suppository Dulcolax this morning currently having small bowel movements and on the toilet. Objective Data Objective Data Vital Signs: Vital Signs Temp Pulse Resp BP Pulse Ox O2 Del Method O2 Flow Rate 98.2 F 97 16 136/70 H 97 Room Air 4 03/06/23 11:15 03/06/23 11:15 03/06/23 11:15 03/06/23 11:15 03/06/23 11:15 03/06/23 11:15 03/03/23 14:59 Oxygen Flow Rate (L/min) 4 Oxygen Delivery Method Room Air Weight: 152 lb 6.383 oz Body Mass Index (BMI) 33.0 Intake & Output: Intake and Output for Last 24 Hours 03/04/23 03/05/23 03/06/23 23:59 23:59 23:59 Intake Total 3638.33 / 3638.33 1903.33 / 1903.33 795.42 / 795.42 Balance 3638.33 / 3638.33 1903.33 / 1903.33 795.42 / 795.42 Lab / Micro Data 03/06/23 04:30 03/06/23 04:30 Labs: Laboratory Results - last 24 hr 03/06/23 04:30: WBC 8.3, RBC 4.02 L, Hgb 12.8, Hct 37.6, MCV 93.5, MCH 31.8, MCHC 34.0, RDW Std Deviation 51.6 H, RDW Coeff of Jessica 14.9 H, Plt Count 266, MPV 9.4, Immature Gran % (Auto) 0.500, Neut % (Auto) 62.6, Lymph % (Auto) 27.1, [place] % (Auto) 8.0, Eos % (Auto) 1.4, Baso % (Auto) 0.4, Absolute Neuts (auto) 5.2, Absolute Lymphs (auto) 2.24, Nucleated RBC % 0, Sodium 140, Potassium 3.8, Chloride 111 H, Carbon Dioxide 26.0, Anion Gap 3 L, BUN 7, Creatinine 0.64, Estim Creat Clear Calc 48.15, Est GFR (MDRD) Af Amer 114, Est GFR (MDRD) Non-Af 94, BUN/Creatinine Ratio 10.9, Glucose 101, Calcium 8.1 L, Phosphorus 2.9, Magnesium 2.1 Physical Exam Const oriented x3 and no apparent distress Resp normal respiratory effort Cardio regular rate Assessment & Plan Assessment/Plan (1) S/P right colectomy: PLAN: Patient is postoperative day 11 from laparoscopic right hemicolectomy with primary ileocolic anastomosis and day 3 from return to the OR with diagnostic laparoscopy and finding of a partial small bowel obstruction. (2) Colon cancer: QUALIFIERS: Colon location: ascending Qualified Code(s): C18.2 - Malignant neoplasm of ascending colon PLAN: Plan Advance patient to soft/transitional diet. Possible DC today versus tomorrow if continues to tolerate diet and have bowel function. Patient did have a bowel movement with suppository. Stop IV fluids Caity Martinez M.D. Pager: [phone] [facility] [address] [place] [address], [address] [place] [id number] Office: [phone]
[2023-03-06 15:57] VITALS: BP 121/64; PULSE 73; RESP 16; TEMP 36.8; O2SAT 98
[2023-03-06 21:00] VITALS: BP 144/74; PULSE 69; RESP 18; TEMP 36.8; O2SAT 97
[2023-03-07 06:00] VITALS: BP 139/79; PULSE 66; RESP 18; TEMP 36.7; O2SAT 96
[2023-03-07] MEDS: Ibuprofen 400 MG Tablet PO ×2 (06:01→11:04)
[2023-03-07 08:20] VITALS: BP 145/73; PULSE 67; RESP 18; TEMP 36.6; O2SAT 98
--- NOTE | 2023-03-07 08:55 | PCM.PN.SRG ---
Subjective Subjective Patient tolerating transitional diet did have bowel movements with some Dulcolax suppositories. Patient does take a daily laxative at home prior to admission. Objective Data Objective Data Vital Signs: Vital Signs Temp Pulse Resp BP Pulse Ox O2 Del Method O2 Flow Rate 98.0 F 66 18 139/79 H 96 Room Air 4 03/07/23 06:00 03/07/23 06:00 03/07/23 06:00 03/07/23 06:00 03/07/23 06:00 03/07/23 06:00 03/03/23 14:59 Oxygen Flow Rate (L/min) 4 Oxygen Delivery Method Room Air Weight: 152 lb 6.383 oz Body Mass Index (BMI) 33.0 Intake & Output: Intake and Output for Last 24 Hours 03/05/23 03/06/23 03/07/23 23:59 23:59 23:59 Intake Total 1903.33 / 1903.33 1145.42 / 1145.42 Balance 1903.33 / 1903.33 1145.42 / 1145.42 Lab / Micro Data 03/06/23 04:30 03/06/23 04:30 Physical Exam Const oriented x3 and no apparent distress Resp normal respiratory effort Cardio regular rate Assessment & Plan Assessment/Plan (1) S/P right colectomy: PLAN: Patient is postoperative day 11 from laparoscopic right hemicolectomy with primary ileocolic anastomosis and day 3 from return to the OR with diagnostic laparoscopy and finding of a partial small bowel obstruction. (2) Colon cancer: QUALIFIERS: Colon location: ascending Qualified Code(s): C18.2 - Malignant neoplasm of ascending colon PLAN: Plan Patient is tolerating transitional/soft diet. Patient did have bowel movements yesterday. will DC home. Follow-up in office in 1 to 2 weeks. Caity Martinez M.D. Pager: [phone] [facility] [address] [place] [address], [address] [place] [address] Office: [phone]
--- NOTE | 2023-03-07 08:56 | DCINST_ITS ---
Discharge Instructions Diet Discharge Diet: - (Transitional/low fiber/soft) Activity Discharge Activity: May Not Drive (while taking narcotic pain medications.) May shower in (days): 1 Lifting Restrictions: no lifting >20 lbs x 2 wks, no strenuous exercise for 4 wks Dressing / Incision Call your doctor if your incision/area has: Continuous Slow Oozing, Sudden Increased Bleeding, Increased Pain/ Swelling, Increased Redness, Foul Smelling Discharge and Swelling at the incision site Call your doctor if you observe: Fever of 101 or Higher Remove Dressing in: 2 days Cleanse incision/area with: Soap & Water Additional Dressing/Incision Instructions:: Steri-Strips will fall off in 7 to 10 days, if they do not fall off okay to remove after 10 days. Follow Up Care Please Follow Up With: Tima Champion MD When: Call the office for a follow-up appointment in 1-2 weeks; after 5 PM and on the weekends call [phone] with any concerns. Test Results: Test results from this visit will be discussed in further detail at your follow- up appointment, if applicable. Discharge Plan Admission Admit Date/Time: 02/24/23 05:12 Attending Provider: Tima Champion Primary Care Provider: Юлия oDss Discharge Orders/Prescriptions Prescriptions: Discontinued metronidazole 500 mg tablet 500 mg PO .COMPLEX Qty: 6 0RF Rx Instructions: 500 mg PO Take 2 (two) tablets at 1300, 1500, 2300 neomycin 500 mg tablet 500 mg PO .COMPLEX Qty: 6 0RF Rx Instructions: Take two (2) 500 mg tablets PO at 1300, 1500, 2300 Other Ambulatory Orders: 12 Lead EKG (Routine) Timeframe: 20230224 Location: None Selected Ordered By: Dr. Tima Champion Referrals / Follow Up: Юлия Doss, WAREHOUSE RECORD CLERK-C [Primary Care Provider] - Disposition Disposition (needs filled in before D/C Order can be placed): Home, Self Care
--- NOTE | 2023-03-07 09:00 | DS.PCM_ITS ---
Providers Date of Admission: 02/24/23 Date of Discharge: 03/07/23 Primary Care Physician: LESTER Perez Reason For Visit: Laparoscopic, Case Colectomy-ERA Diagnosis Discharge Diagnosis (1) S/P right colectomy: Status: Acute Code(s): Z90.49 - Acquired absence of other specified parts of digestive tract Plan: Patient is postoperative day 12 from laparoscopic right hemicolectomy with primary ileocolic anastomosis and day 4 from return to the OR with diagnostic laparoscopy and finding of a partial small bowel obstruction. (2) Colon cancer: Status: Acute Code(s): C18.9 - Malignant neoplasm of colon, unspecified Qualifiers: Colon location: ascending Qualified Code(s): C18.2 - Malignant neoplasm of ascending colon Plan Patient is tolerating transitional/soft diet. Patient did have bowel movements yesterday. will DC home. Follow-up in office in 1 to 2 weeks. Caity Martinez M.D. Pager: [phone] [facility] [address] [place] [address], [address] [place] [address] Office: [phone] Hospital Course Operations colectomy (Laparoscopic right hemicolectomy 02/25/[address] Champion) and - (Diagnostic laparoscopy due to partial small bowel obstruction 03/03/[address] Champion) Procedures None Summary of Care Provided Minutes Spent on Discharge: 15 Hospital Course: Patient was admitted for a laparoscopic right hemicolectomy due to colon cancer. Pathological staging was a T3 N0 MX. She did have a prolonged postop ileus/possible partial small bowel obstruction. Patient had CT abdomen pelvis w [facility] showed dilated small bowel and slow transition of contrast as well as some fluid/gas-filled colon. On postop day 8 patient was taken back to the OR for diagnostic laparoscopy small bowel was able to be ran from anastomosis to fluid- filled small bowel without issues. Patient was started back on a diet when she began having flatus. Patient was tolerating clears and advance to fulls and then advance to a transitional diet. Patient did also have a bowel movement did have suppository to assist as patient is chronically on laxatives daily at home. Weight / BMI Weight Weight: 152 lb 6.383 oz Body Mass Index (BMI) 33.0 ABG / Lab / Microbiology Data 03/06/23 04:30 03/06/23 04:30 D/C Instructions Discharge Diet: - (Transitional/low fiber/soft) Discharge Activity: May Shower May shower in (days): 1 Call your doctor if your incision/area has: Continuous Slow Oozing, Sudden Increased Bleeding, Increased Pain/ Swelling, Increased Redness, Foul Smelling Discharge and Swelling at the incision site Call your doctor if you observe: Fever of 101 or Higher Cleanse incision/area with: Soap & Water Additional Dressing/Incision Instructions: Steri-Strips will fall off in 7 to 10 days, if they do not fall off okay to remove after 10 days from surgery. Please Follow Up With: Tima Champion MD When: Call the office for a follow-up appointment in 1-2 weeks; after 5 PM and on the weekends call [phone] with any concerns. Meaningful Use Info Meaningful Use Diagnoses (Choose all that apply): None applicable Discharge Plan Admission Admit Date/Time: 02/24/23 05:12 Attending Provider: Tima Champion Primary Care Provider: Юлия Doss Discharge Orders/Prescriptions Prescriptions: Discontinued metronidazole 500 mg tablet 500 mg PO .COMPLEX Qty: 6 0RF Rx Instructions: 500 mg PO Take 2 (two) tablets at 1300, 1500, 2300 neomycin 500 mg tablet 500 mg PO .COMPLEX Qty: 6 0RF Rx Instructions: Take two (2) 500 mg tablets PO at 1300, 1500, 2300 Other Ambulatory Orders: 12 Lead EKG (Routine) Timeframe: 20230224 Location: None Selected Ordered By: Dr. Tima Champion Referrals / Follow Up: Юлия Doss, COMPUTED TOMOGRAPHY TECHNICIAN-C [Primary Care Provider] - Disposition Disposition (needs filled in before D/C Order can be placed): Home, Self Care
[2023-03-07 10:00] VITALS: BP 133/61; PULSE 88; RESP 18; TEMP 36.4; O2SAT 97
--- NOTE | 2023-03-07 10:29 | CASEMGMT ---
Pt. has discharge order in. RN CM in to pt. room to discuss needs at discharge. Pt. denies having any needs at this time. Pt. denies having any additional questions or concerns at this time.
== END 2023-03-07 11:40 | disposition home or self-care (01) | DRG 330 ==
LOC: ACINP 05:21 → MS3 15:44
PROVIDERS: Physician Assistant; Admitting Provider Surgery; PCP Nurse Practitioner Family; Referring Provider Surgery; Visit Provider Surgery
PROC: 0DTF4ZZ Resection of Right Large Intestine, Percutaneous Endoscopic Approach (ICD-10-PCS; CPT 44205; principal; 2023-02-24 07:10)
PROC: 0WJP4ZZ Inspection of Gastrointestinal Tract, Percutaneous Endoscopic Approach (ICD-10-PCS; CPT 49320; principal; 2023-03-03 12:45)
DX: C18.0 Malignant neoplasm of cecum (principal); K91.31 Postprocedural partial intestinal obstruction; F41.0 Panic disorder [episodic paroxysmal anxiety]; K76.9 Liver disease, unspecified; Z79.01 Long term (current) use of anticoagulants; Z90.49 Acquired absence of other specified parts of digestive tract
CPT/HCPCS: 36415; 74018; 74177; 80048; 81001; 81002; 82378; 82962; 83735; 84100; 85025; 85027; 88309; 88341; 88342; 93005; 94668; 97162; 97530; 99252; J7030; J7050; J7120; Q9967; A4216; G0463; J1940; J2405; J3475; J3490

== ENCOUNTER 2024-09-21 10:00 | Day surgery (SDC) | payer MEDICARE, SELFPAY ==
--- NOTE | 2024-09-19 15:58 | PAT.ANESEVAL ---
Pre-Assessment Diagnosis/Proposed Procedure Planned Operative Procedure(s): COLONOSCOPY Anesthesia History Anesthesia History - retail coverage merchandiser lead: Anesthesia History - retail coverage merchandiser lead Hx Hospitalization No 09/19/24 15:35 Any Problems With Anesthesia Yes: IRREG HEART RATE 09/19/24 15:35 Cholinesterase deficiency No 09/19/24 15:35 You/Your Family Experience No 09/19/24 15:35 fever (hyperthermia) with Relationship Recent Exposure to Contagious No 02/24/23 06:08 Disease Does patient have nerve No 09/19/24 15:35 stimulator Patient instructed to have device shut off --Does patient have Pacemaker or ICD? When Was Last Pacemaker Check QUESTION #4 FULL TEXT: You/Your Family Experience fever (hyperthermia) with Anesthesia Last Oral Intake Last Oral intake: Last Oral Intake NPO since Meds taken in AM with sips of water? Meds patient instructed to take am of surgery PONV PONV - retail coverage merchandiser lead: PONV - retail coverage merchandiser lead Female Yes 09/19/24 15:35 HX of Motion Sickness No 09/19/24 15:35 HX of N/V After Surgery No 09/19/24 15:35 Non-Smoker Yes 09/19/24 15:35 Duration of Surgery greater No 09/19/24 15:35 than 60 minutes Number of Risk Factors 2 09/19/24 15:35 PONV Score Moderate Risk 09/19/24 15:35 Height & Weight Height & Weight: Anesthesia: Height & Weight Height 4 ft 9 in 03/05/23 13:12 Respiratory Assessment Respiratory Assessment - retail coverage merchandiser lead: Respiratory Tract Infection Hx - retail coverage merchandiser lead Hx Respiratory Tract Infection No 09/19/24 15:35 STOP Sleep Apnea STOP Sleep Apnea - retail coverage merchandiser lead: STOP Sleep Apnea - retail coverage merchandiser lead Hx Hypertension No 09/19/24 15:35 Hx Sleep Apnea No 09/19/24 15:35 CPAP BIPAP Do you snore loudly (louder No 09/19/24 15:35 than talking or can be heard Do you often feel tired/ No 09/19/24 15:35 fatigued/ sleepy during daytime? Has anyone observed you stop No 09/19/24 15:35 breathing during sleep? STOP Results Negative 09/19/24 15:35 QUESTION #5 FULL TEXT : Do you snore loudly (louder than talking or can be heard through closed doors)? Tobacco Use History Tobacco Use History - retail coverage merchandiser lead: Tobacco Use History - retail coverage merchandiser lead Tobacco Use Smoking Status Never smoker 09/19/24 15:35 Hx Tobacco Use No 09/19/24 15:35 Years Smoking Packs Smoked per Day Smoking Cessation Date was within the last 15 years Hx Smoking Cessation Date Hx Smoking Cessation Counseling Hematologic Medial History Hematologic Hx - retail coverage merchandiser lead: Hematologic Medical Hx - documentation consultant Hx of Blood Transfusion No 09/19/24 15:35 Hx of Transfusion in last 3 No 09/19/24 15:35 Months Date of Last Transfusion (if within last 3 months) Ever experience any problems No 09/19/24 15:35 with transfusion(s)? Specify any problems Hx of Preganancy in last 3 No 09/19/24 15:35 Months Nurse Filling Out Transfusion VCHRISTIN 09/19/24 15:35 & Questions: Date: 09/19/24 09/19/24 15:35 Time: 15:36 09/19/24 15:35 Patient unable to answer at this time (ie. confused, unrespo /Reproduction History /Reproductive History - retail coverage merchandiser lead: /Reproductive Hx- retail coverage merchandiser lead Hx Now No 09/19/24 15:35 Gestational Age (in weeks): EDC: Hx Hx Para Hx Section SAB No 09/19/24 15:35 [facility] Medical History (Updated 09/19/24 @ 15:35 by Jeanne Reynoso) Cancer Wears hearing aid Wears glasses Post-menopausal Arthritis Bladder disease Back pain Dietary restriction Difficulty swallowing Gastric reflux Non-smoker Shortness of breath on exertion Leg cramps History of pain when walking History of edema History of irregular heartbeat Anxiety Constipation Home Medications ?Medication ?Instructions ?Recorded ?Last Taken ?Type tajik alessia 3 tab PO HS 07/15/24 Unknown History cholecalciferol (vitamin D3) 25 25 mcg PO DAILY 09/19/24 Unknown History mcg (1,000 unit) capsule (Vitamin D3) digestive enzymes 1 cap PO DAILY 09/19/24 Unknown History magnesium 250 mg tablet 250 mg PO DAILY 09/19/24 Unknown History Allergy/AdvReac Type Severity Reaction Status Date / Time Fish Containing Products Allergy Severe Swelling Verified 09/19/24 15:29 (seafood) milk (dairy) Allergy Severe Swelling Verified 09/19/24 15:29 wheat Allergy Severe Swelling Verified 09/19/24 15:29 Sulfa (Sulfonamide Allergy Intermediate Rash Verified 09/19/24 15:29 Antibiotics) Surgical History (Updated 09/19/24 @ 15:35 by Jeanne Reynoso) Hx of right hemicolectomy Hx of right cataract extraction Hx of left cataract extraction History of tonsillectomy H/O total hysterectomy Social History (Updated 12/04/22 @ 14:23 by Nathalia Rodriguez) Smoking Status: Never smoker alcohol intake: never Audit: Pertinent Findings Pertinent Findings EKG Perinent findings: Sinus rhythm with Premature supraventricular complexes Left axis deviation Abnormal ECG 02/2023 Recommendation Anesthesia Recommendation Anesthesia recommendation: OPTIMIZED for anesthesia
[2024-09-21] VITALS (9 sets, daily range): BP systolic 103–155; BP diastolic 56–118; PULSE 61–73; RESP 16–17; TEMP 36.4–36.6; O2SAT 96–100; BMI 34.7
[2024-09-21] MEDS: Lactated Ringers 1,000 ML 15 ML IV (10:32)
--- NOTE | 2024-09-21 10:55 | PCM.PRE.AN2 ---
ASA Classification* ASA Classification ASA Classification: 3 (NO VERSED. H/o colon cancer , h/x right colectomy ) Assessment & Plan Anesthesia* Anesthesia Assessment Anesthesia Assessment: Discussed sedation and/or anesthesia options, risks, benefits, and alternatives with patient/parents/legal guardian/POA. Questions invited. The patient/parents/legal guardian/POA seems to understand and agrees to proceed with anesthesia plan. Reviewed the physical assessment, medical history, allergy history and patient home medications list prior to surgery/procedure/anesthetic and documented any changes. Performed airway and anesthesia risk assessments. Anesthesia Type Anesthesia Type: General History Source History Obtained from:: Patient and Chart Anesthesia Focused Assessment* Temperature: 97.6 F Pulse Rate: 61 Blood Pressure: 155/118 Respiratory Rate: 17 Pulse Ox: 100 Oxygen Delivery Method: Room Air Airway Assessment Mouth opens: >3 cm Mallampati Score: II Teeth Condition: Intact Neck Range of motion (ROM): Full ROM Focused Labs Anesthesia Preop lab: CBC WBC 8.3 K/mm3 (4.4-11.0) 03/06/23 04:30 03/06/23 RBC 4.02 M/mm3 (4.2-5.4) L 03/06/23 04:30 03/06/23 Hgb 12.8 g/dL (12.0-15.0) 03/06/23 04:30 03/06/23 Hct 37.6 % (37-47) 03/06/23 04:30 03/06/23 Plt Count 266 K/mm3 (150-450) 03/06/23 04:30 03/06/23 CHEMISTRY Potassium 3.8 mmol/L (3.5-5.1) 03/06/23 04:30 03/06/23 Sodium 140 mmol/L (136-145) 03/06/23 04:30 03/06/23 Magnesium 2.1 mg/dL (1.6-2.6) 03/06/23 04:30 03/06/23 Phosphorus 2.9 mg/dL (2.5-4.9) 03/06/23 04:30 03/06/23 BUN 7 mg/dL (7-18) 03/06/23 04:30 03/06/23 Creatinine 0.64 mg/dL (0.55-1.02) 03/06/23 04:30 03/06/23 Glucose 101 mg/dL (74-106) 03/06/23 04:30 03/06/23 POC Glucose 133 mg/dL (74-106) H 02/24/23 11:49 02/24/23 COAG Pre-Assessment Diagnosis/Proposed Procedure Planned Operative Procedure(s): COLONOSCOPY Anesthesia History Anesthesia History - movie critic: Anesthesia History - movie critic Hx Hospitalization No 09/19/24 15:35 Any Problems With Anesthesia Yes: IRREG HEART RATE 09/19/24 15:35 Cholinesterase deficiency No 09/19/24 15:35 You/Your Family Experience No 09/19/24 15:35 fever (hyperthermia) with Relationship Recent Exposure to Contagious No 09/21/24 10:33 Disease Does patient have nerve No 09/19/24 15:35 stimulator Patient instructed to have device shut off --Does patient have Pacemaker No 09/21/24 10:33 or ICD? When Was Last Pacemaker Check QUESTION #4 FULL TEXT: You/Your Family Experience fever (hyperthermia) with Anesthesia Last Oral Intake Last Oral intake: Last Oral Intake NPO since 00:00 09/21/24 10:33 Meds taken in AM with sips of No 09/21/24 10:33 water? Meds patient instructed to take am of surgery PONV PONV - movie critic: PONV - movie critic Female Yes 09/19/24 15:35 HX of Motion Sickness No 09/19/24 15:35 HX of N/V After Surgery No 09/19/24 15:35 Non-Smoker Yes 09/19/24 15:35 Duration of Surgery greater No 09/19/24 15:35 than 60 minutes Number of Risk Factors 2 09/19/24 15:35 PONV Score Moderate Risk 09/19/24 15:35 Height & Weight Height & Weight: Anesthesia: Height & Weight Height 4 ft 9 in 09/21/24 10:33 Weight: 72.8 kg 09/21/24 10:33 Body Mass Index (BMI) 34.7 09/21/24 10:33 Respiratory Assessment Respiratory Assessment - movie critic: Respiratory Tract Infection Hx - movie critic Hx Respiratory Tract Infection No 09/19/24 15:35 STOP Sleep Apnea STOP Sleep Apnea - movie critic: STOP Sleep Apnea - movie critic Hx Hypertension No 09/19/24 15:35 Hx Sleep Apnea No 09/19/24 15:35 CPAP BIPAP Do you snore loudly (louder No 09/19/24 15:35 than talking or can be heard Do you often feel tired/ No 09/19/24 15:35 fatigued/ sleepy during daytime? Has anyone observed you stop No 09/19/24 15:35 breathing during sleep? STOP Results Negative 09/19/24 15:35 QUESTION #5 FULL TEXT : Do you snore loudly (louder than talking or can be heard through closed doors)? Tobacco Use History Tobacco Use History - movie critic: Tobacco Use History - movie critic Tobacco Use Smoking Status Never smoker 09/19/24 15:35 Hx Tobacco Use No 09/19/24 15:35 Years Smoking Packs Smoked per Day Smoking Cessation Date was within the last 15 years Hx Smoking Cessation Date Hx Smoking Cessation Counseling Hematologic Medial History Hematologic Hx - movie critic: Hematologic Medical Hx - electronic specialist Hx of Blood Transfusion No 09/19/24 15:35 Hx of Transfusion in last 3 No 09/19/24 15:35 Months Date of Last Transfusion (if within last 3 months) Ever experience any problems No 09/19/24 15:35 with transfusion(s)? Specify any problems Hx of Preganancy in last 3 No 09/19/24 15:35 Months Nurse Filling Out Transfusion VCHRISTIN 09/19/24 15:35 & Questions: Date: 09/19/24 09/19/24 15:35 Time: 15:36 09/19/24 15:35 Patient unable to answer at this time (ie. confused, unrespo /Reproduction History /Reproductive History - movie critic: /Reproductive Hx- movie critic Hx Now No 09/19/24 15:35 Gestational Age (in weeks): EDC: Hx Hx Para Hx Section SAB No 09/19/24 15:35 Active Medications Active Medications: Current Medications Generic Name Dose Route Start Last Admin Trade Name Freq PRN Reason Stop Dose Admin Lactated Ringer's 1,000 mls @ 15 mls/hr 09/21/24 10:15 09/21/24 10:32 IV 15 mls/hr .Q48H TRISTA Administration PFSH Medical History Cancer Wears hearing aid Wears glasses Post-menopausal Arthritis Bladder disease Back pain Dietary restriction Difficulty swallowing Gastric reflux Non-smoker Shortness of breath on exertion Leg cramps History of pain when walking History of edema History of irregular heartbeat Anxiety Constipation Home Medications ?Medication ?Instructions ?Recorded ?Last Taken ?Type iranian alessia 3 tab PO HS 07/15/24 09/20/24 History cholecalciferol (vitamin D3) 25 25 mcg PO DAILY 09/19/24 09/20/24 History mcg (1,000 unit) capsule (Vitamin D3) digestive enzymes 1 cap PO DAILY 09/19/24 09/20/24 History magnesium 250 mg tablet 250 mg PO DAILY 09/19/24 09/20/24 History Allergy/AdvReac Type Severity Reaction Status Date / Time Fish Containing Products Allergy Severe Swelling Verified 09/21/24 10:08 (seafood) milk (dairy) Allergy Severe Swelling Verified 09/21/24 10:08 wheat Allergy Severe Swelling Verified 09/21/24 10:08 Sulfa (Sulfonamide Allergy Intermediate Rash Verified 09/21/24 10:08 Antibiotics) Surgical History Hx of right hemicolectomy Hx of right cataract extraction Hx of left cataract extraction History of tonsillectomy H/O total hysterectomy Social History Smoking Status: Never smoker alcohol intake: never Review of Systems (Anesthesia) ROS Narrative System reviewed and no additional complaints, except as documented.
--- NOTE | 2024-09-21 11:04 | SUR.PREOP ---
DR. AYALA REQUESTED A REPEAT BLOOD PRESSURE. THE CUFF THAT WAS USED ORIGINALLY WAS TOO SMALL IN MY OPINION. A LARGER CUFF WAS USED AND HER BP WAS 120/73. OK PER DR. AYALA TO PROCEED WITH PROCEDURE.
--- NOTE | 2024-09-21 11:35 | PCM.HP.STD ---
HPI - General General Date of Admission: 09/21/24 Date of Service: 09/21/24 Chief Complaint: colon cancer HPI Narrative VAIBHAV TSANG, is a 84 F who presentsLYMESSI TSANG, is a 84 F who presents to the office today for PCP OV with concern for constipation. *BGI established 12.04.22 reporting constipation for most of her life; small BM 1-2/day with use of laxative with bloating and general abdominal discomfort. ? Biochemical CBC, ESR, CMP, GAME, SANDIP, ANCA, ERROL comp, celiac without pertinent. ? CRP H3.41? RAST Class I clam, cow?s milk, egg whole/white, scallop, sesame, wheat; Seafood+. Environmental + Contact 12.15.22 with results. Will attempt avoidance. ? Colonoscopy 01.01.23 three sessile TA polyps; melanosis coli; large ulcerated non-obstructing mass of cecum, tattooed, invasive adenocarcinoma. Contact 01.13.23 with colonoscopy results; recommend CT and possible general surgery/oncology referrals ? CT chest/abd/pel 01.28.23 lung scarring at bases; tiny gallstones; splenic granuloma; soft tissue mass at cecum with apple core appearance, likely neoplasm. Contact 02.05.[address] scan results. WSA established 02.06.23 for colon cancer with hospitalization 02.24.23-03.07.23 for colectomy but did develop SBO. Surgery 02.24.23 laparoscopic right hemicolectomy with primary ileocolic anastomosis. Invasive moderately differentiated G2 adenocarcinoma with clear margins, tumor invades through muscularis propria CT abd/pel 03.02.23 small bilateral PE; dilated small bowel; evidence of hemicolectomy; free fluid RUQ KUB 03.03.23 concerning for stable small bowel ileus versus obstruction Surgery 03.03.23 diffusely dilated small bowel with Alexandre?s pouch fluid, diffuse SBO; anastomosis identified with viable appearance; oozing noting from sweeping of adhesions with irrigation until clear OV 05.14.23 mid/lower abdominal pain intermittently following PO intake with increased flatulence; she is unsure of food etiology. She has not attempted food elimination of food sensitivities. BM fluctuate between normal and constipated. She takes Tristanian Belinda OTC with stimulant laxative each day. OV 07.10.23 She is having rectal pain most of the time. BM are good with use of OTC medications. Would like to have an examination today. History chronic idiopathic constipation. Significant for dysfunction, slow transit constipation. She takes laxatives and has been using laxatives in order to go to the bathroom for at least 30 years. She also has multiple drug allergies so she does not want to take anything else without knowing the side effect profile. She underwent colonoscopy and was discovered to have diverticular disease also multiple colon polyps and a colon cancer. We had done some food allergy testing as she has a lot of seafood allergies along with a lot of allergies to oat barley wheat rye egg yolks. We discussed with her eliminating some of these foods or eating them in a lower quantity. She said she we will try to adjust her diet. She is not having any bleeding per rectum but she still having some constipation issues. For hemorrhoid start hydrocortisone 25mg BID. OV 07.15.24 Frequent abdominal discomfort and fullness. Occasional mild nausea. Herbal laxative Tristanian Adela taken at HS. 2 small formed BM daily. Occ scant blood in stool. Does not use hydrocortisone suppositories d/t mobility and self administration issues, although hemorrhoid appears to have improved. Changed diet since last visit somewhat and has had some improvement with abdominal pain and bloating. [facility] Medical History Cancer Wears hearing aid Wears glasses Post-menopausal Arthritis Bladder disease Back pain Dietary restriction Difficulty swallowing Gastric reflux Non-smoker Shortness of breath on exertion Leg cramps History of pain when walking History of edema History of irregular heartbeat Anxiety Constipation Home Medications ?Medication ?Instructions ?Recorded ?Last Taken ?Type pakistani adela 3 tab PO HS 07/15/24 09/20/24 History cholecalciferol (vitamin D3) 25 25 mcg PO DAILY 09/19/24 09/20/24 History mcg (1,000 unit) capsule (Vitamin D3) digestive enzymes 1 cap PO DAILY 09/19/24 09/20/24 History magnesium 250 mg tablet 250 mg PO DAILY 09/19/24 09/20/24 History Allergy/AdvReac Type Severity Reaction Status Date / Time Fish Containing Products Allergy Severe Swelling Verified 09/21/24 10:08 (seafood) milk (dairy) Allergy Severe Swelling Verified 09/21/24 10:08 wheat Allergy Severe Swelling Verified 09/21/24 10:08 Sulfa (Sulfonamide Allergy Intermediate Rash Verified 09/21/24 10:08 Antibiotics) Surgical History Hx of right hemicolectomy Hx of right cataract extraction Hx of left cataract extraction History of tonsillectomy H/O total hysterectomy Social History Smoking Status: Never smoker alcohol intake: never ROS Constitutional Constitutional: Denies fatigue, fever(s), poor appetite, weight gain or weight loss Gastrointestinal Gastrointestinal: Denies belching, bloating, change in bowel habits, change in stool character, chewing difficulty, coffee ground emesis, constipation, cramping, diarrhea, dyspepsia, dysphagia, early satiety, excessive flatus, fecal incontinence, heartburn, hematemesis, hematochezia, hemorrhoids, loose stools, melena, nausea, odynophagia, rectal bleeding, tenesmus, vomiting or weight changes Vital Signs Vital Signs Vital Signs: 09/21/24 10:33 09/21/24 10:33 09/21/24 10:56 Temperature 97.6 F L 97.6 F L Temperature Source Temporal Pulse Rate 61 61 Respiratory Rate 17 17 Respiratory Pattern Normal Blood Pressure 155/118 H 155/118 H Blood Pressure Mean 130 Blood Pressure Source Monitor Blood Pressure Position Semi-Fowlers Blood Pressure Location Left Arm Pulse Ox 100 100 Oxygen Delivery Method Room Air Room Air Weight Weight: 160 lb 7.944 oz Body Mass Index (BMI) 34.7 Physical Exam Const oriented x3 and no apparent distress Resp normal respiratory effort Cardio regular rate Assessment & Plan Assessment/Plan (1) Acute hemorrhoid: (2) S/P right colectomy: (3) Colon cancer: QUALIFIERS: Colon location: ascending Qualified Code(s): C18.2 - Malignant neoplasm of ascending colon PLAN: Assessment and Plan Assessment and Plan (1) Constipation: Status: Chronic Qualifiers: Constipation type: slow transit constipation Qualified Code(s): K59.01 - Slow transit constipation Plan: 82-year-old with chronic idiopathic constipation. Significant for dysfunction, slow transit constipation. She takes laxatives and has been using laxatives in order to go to the bathroom for at least 30 years. She also has multiple drug allergies so she does not want to take anything else without knowing the side effect profile. She underwent colonoscopy and was discovered to have diverticular disease also multiple colon polyps and a colon cancer. We had done some food allergy testing as she has a lot of seafood allergies along with a lot of allergies to oat barley wheat rye egg yolks. We discussed with her eliminating some of these foods or eating them in a lower quantity. She said she we will try to adjust her diet (2) Colon cancer: Status: Resolved Qualifiers: Colon location: ascending Qualified Code(s): C18.2 - Malignant neoplasm of ascending colon Plan: Her colon cancer was on the cecum. She underwent right hemicolectomy. She is not having any bleeding per rectum but she still having some constipation issues. We will perform a surveillance colonoscopy because of her history of colon cancer as it has been 16 months since her resection. (3) S/P right colectomy: Status: Chronic (4) Acute hemorrhoid: Status: Acute Plan: We will send her hydrocortisone 25mg BID for 30 days
--- NOTE | 2024-09-21 12:25 | PCM.POST.ANE ---
Anesthesia: Postop Eval I Current Vital Signs Temperature: 97.9 F Pulse Rate: 71 Blood Pressure: 107/56 Respiratory Rate: 16 Pulse Ox: 96 Oxygen Delivery Method: Room Air Assessment Airway patent: Yes Spontaneous unlabored respirations: Yes Mental status: Awake and Calm nausea: No Vomiting: No Anesthesia Complication: No Fluid Hydration Crystalloid volume administer (ml): 300 Total IV fluid infused: 300 Progress Note Anesthesia document: Postop Eval 1 completed: Yes
--- NOTE | 2024-09-21 12:28 | OP.CCLET_ITS ---
09/21/2024 Adan Perez Re : Colonoscopy procedure for Dawna Melgar Dear Selam This procedure was performed on Saturday, September 21, 2024. My impressions and recommendations are as follows: Impressions : - Melanosis in the colon. - Diverticulosis in the recto-sigmoid colon, in the sigmoid colon, in the descending colon and at the splenic flexure. - Patent end-to-side ileo-colonic anastomosis, characterized by healthy appearing mucosa. - No specimens collected. Recommendations : - Discharge patient to home. - Resume previous diet. - Continue present medications. - Repeat colonoscopy in 2 years for surveillance. My findings are described in the full procedure note, which is enclosed. If I can be of further assistance, please feel free to contact me at . Sincerely, Chidi Wu, 09/21/2024 12:27:54 PM This report has been signed electronically.
--- NOTE | 2024-09-21 12:28 | OP.COLON_ITS ---
Patient Name: Dawna Melgar Procedure Date: 09/21/2024 12:00 PM Date of : 1940 Age: 84 Procedure: Colonoscopy Indications: High risk colon cancer surveillance: Personal history of colon cancer Providers: Chidi Wu DO Referring MD: Chidi Wu DO Medicines: Monitored Anesthesia Care Patient Profile: This is an 84 year old female. Refer to note in patient chart for documentation of history and physical. Last Colonoscopy: within the past 3 years. Complications: No immediate complications. Procedure: Pre-Anesthesia Assessment: - Prior to the procedure, a History and Physical was performed, and patient medications and allergies were reviewed. The patient is competent. The risks and benefits of the procedure and the sedation options and risks were discussed with the patient. All questions were answered and informed consent was obtained. Patient identification and proposed procedure were verified by the physician in the pre-procedure area. Mental Status Examination: alert and oriented. Airway Examination: normal oropharyngeal airway and neck mobility. Respiratory Examination: clear to auscultation. CV Examination: normal. Prophylactic Antibiotics: The patient does not require prophylactic antibiotics. Prior Anticoagulants: The patient has taken no anticoagulant or antiplatelet agents except for NSAID medication. ASA Grade Assessment: II - A patient with mild systemic disease. After reviewing the risks and benefits, the patient was deemed in satisfactory condition to undergo the procedure. The anesthesia plan was to use monitored anesthesia care (MAC). Immediately prior to administration of medications, the patient was re-assessed for adequacy to receive sedatives. The heart rate, respiratory rate, oxygen saturations, blood pressure, adequacy of pulmonary ventilation, and response to care were monitored throughout the procedure. The physical status of the patient was re-assessed after the procedure. After I obtained informed consent, the scope was passed under direct vision. Throughout the procedure, the patient's blood pressure, pulse, and oxygen saturations were monitored continuously. The Colonoscope was introduced through the anus and advanced to the ileocolonic anastomosis. The colonoscopy was performed without difficulty. The patient tolerated the procedure well. The quality of the bowel preparation was adequate. The terminal ileum, ileocecal valve, appendiceal orifice, and rectum were photographed. Scope In: 12:10:23 PM Scope Withdrawal Time 0 hours 6 minutes 36 seconds Scope Out: 12:19:45 PM Total Procedure Duration Time 0 hours 9 minutes 22 seconds Findings: The perianal and digital rectal examinations were normal. A diffuse area of severe melanosis was found in the entire colon. Multiple small-mouthed diverticula were found in the recto-sigmoid colon, sigmoid colon, descending colon and splenic flexure. There was evidence of a prior end-to-side ileo-colonic anastomosis in the ascending colon. This was patent and was characterized by healthy appearing mucosa. Non-bleeding internal hemorrhoids were found during retroflexion. The hemorrhoids were Grade II (internal hemorrhoids that prolapse but reduce spontaneously). Impression: - Melanosis in the colon. - Diverticulosis in the recto-sigmoid colon, in the sigmoid colon, in the descending colon and at the splenic flexure. - Patent end-to-side ileo-colonic anastomosis, characterized by healthy appearing mucosa. - No specimens collected. Recommendation: - Discharge patient to home. - Resume previous diet. - Continue present medications. - Repeat colonoscopy in 2 years for surveillance. Procedure Code(s): --- Professional --- 37296, Colonoscopy, flexible; diagnostic, including collection of specimen(s) by brushing or washing, when performed (separate procedure) CPT copyright 2021 [employer]. All rights reserved. The codes documented in this report are preliminary and upon gut sorter review may be revised to meet current compliance requirements. Chidi Wu DO 09/21/2024 12:27:54 PM This report has been signed electronically. Number of Addenda: 0 Note Initiated On: 09/21/2024 12:00 PM
--- NOTE | 2024-09-21 14:13 | POSTOPAN2_ITS ---
Anesthesia Postop Eval I Sum Postop Eval Completion status Anesthesia document: Postop Eval 1 completed: Yes Anesthesia Postop Eval I Summary Anesthesia Postop Eval I Summary: Anesthesia Postop Eval I: Assessment Summary Airway patent Yes 09/21/24 12:26 [email or web address] Spontaneous unlabored Yes 09/21/24 12:26 [email or web address] respirations Mental status Awake,Calm 09/21/24 12:26 [email or web address] nausea No 09/21/24 12:26 [email or web address] Vomiting No 09/21/24 12:26 [email or web address] Anesthesia Postop Eval I: Fluid Summary Crystalloid volume administer 300 09/21/24 12:26 [email or web address] (ml) Colloids volume administered ( ml) Blood Product volume administered (ml) Total IV fluid infused 300 09/21/24 12:26 [email or web address] Anesthesia Postop Eval I: Summary Notes Anesthesia Complication No 09/21/24 12:26 [email or web address] Anesthesia Complication Comment: Post-operative progress note Anesthesia: Postop Eval II Evaluation Mental status: Awake Pain Level: 0 nausea: No Vomiting: No Complications Anesthesia Complication: No
--- NOTE | 2024-09-21 14:13 | PCM.POSTANE2 ---
Anesthesia Postop Eval I Sum Postop Eval Completion status Anesthesia document: Postop Eval 1 completed: Yes Anesthesia Postop Eval I Summary Anesthesia Postop Eval I Summary: Anesthesia Postop Eval I: Assessment Summary Airway patent Yes 09/21/24 12:26 [email or web address] Spontaneous unlabored Yes 09/21/24 12:26 [email or web address] respirations Mental status Awake,Calm 09/21/24 12:26 [email or web address] nausea No 09/21/24 12:26 [email or web address] Vomiting No 09/21/24 12:26 [email or web address] Anesthesia Postop Eval I: Fluid Summary Crystalloid volume administer 300 09/21/24 12:26 [email or web address] (ml) Colloids volume administered ( ml) Blood Product volume administered (ml) Total IV fluid infused 300 09/21/24 12:26 [email or web address] Anesthesia Postop Eval I: Summary Notes Anesthesia Complication No 09/21/24 12:26 [email or web address] Anesthesia Complication Comment: Post-operative progress note Anesthesia: Postop Eval II Evaluation Mental status: Awake Pain Level: 0 nausea: No Vomiting: No Complications Anesthesia Complication: No
== END 2024-09-21 13:37 | disposition home or self-care (01) ==
LOC: EN 10:01 → AC 10:04
PROVIDERS: PCP Nurse Practitioner Family; Referring Provider Internal Medicine Gastroenterology; Visit Provider Internal Medicine Gastroenterology
PROC: 0DJD8ZZ Inspection of Lower Intestinal Tract, Via Natural or Artificial Opening Endoscopic (ICD-10-PCS; CPT 45378; principal; 2024-09-21 10:55)
DX: Z12.11 Encounter for screening for malignant neoplasm of colon (principal); Z85.038 Personal history of other malignant neoplasm of large intestine; Z90.49 Acquired absence of other specified parts of digestive tract; K59.01 Slow transit constipation; Z98.0 Intestinal bypass and anastomosis status; K64.1 Second degree hemorrhoids; K63.89 Other specified diseases of intestine; K57.30 Diverticulosis of large intestine without perforation or abscess without bleeding; K21.9 Gastro-esophageal reflux disease without esophagitis
CPT/HCPCS: G0105